=== PATIENT | male | born 1945 | race Caucasian/White ===

== ENCOUNTER 2020-05-26 06:33 | Day surgery (SDC) | payer MEDICARE, SELFPAY ==
--- NOTE | 2020-05-24 14:14 | EKG12_ITS ---
Test Reason : PRE OP Blood Pressure : / mmHG Vent. Rate : 059 BPM Atrial Rate : 059 BPM P-R Int : 160 ms QRS Dur : 094 ms QT Int : 472 ms P-R-T Axes : 060 067 052 degrees QTc Int : 467 ms Sinus bradycardia Otherwise normal ECG Confirmed by KARMEN WARREN, KARIN ([id number]), editorial writer LISA SMITH ([id number]) on 05/25/2020 10:45:51 AM Referred By: Long Calles Confirmed By:KARIN PERAZA MD
[2020-05-24 16:02] LABS: Hematocrit 37.8 % (40-54); Mean Corp Hgb Conc 31.7 g/dL (32-36); Mean Corpuscular Hgb 30.2 pg (27.0-32.0); Mean Platelet Vol. 10.9 fl (6.2-12.0); Platelet Count 122 K/mm3 (150-450); RBC Distribution Width CV 14.6 % (11.6-14.6); RBC Distribution Width SD 50.5 fl (35.1-43.9); Red Blood Count 3.98 M/mm3 (4.6-6.2); White Blood Count 5.4 K/mm3 (4.4-11.0)
[2020-05-24 16:21] LABS: Anion Gap 4 (5-15); BUN 16 mg/dL (7-18); BUN/Creat Ratio 12.5 RATIO (10-20); Chloride 114 mmol/L (98-107); Creatinine, Serum 1.28 mg/dL (0.70-1.30); EST Glomerular Filtration Rate 58 mL/min (>60); Est Glom Filt Rate - Afr Amer 70 mL/min (>60); Glucose 151 mg/dL (74-106); Potassium 4.5 mmol/L (3.5-5.1); Sodium Level 142 mmol/L (136-145)
[2020-05-26] VITALS (12 sets, daily range): BP systolic 115–160; BP diastolic 52–76; PULSE 64–71; RESP 16–18; TEMP 36.1–36.8; O2SAT 92–97; BMI 35.4
--- NOTE | 2020-05-26 | PROS_PTH ---
PATIENT: BETO HANSON LOC: [facility] [place] U#:[id number] AGE/SX: 74/M ROOM: RE05/26/[address]: Dr. Long Calles MD : [id number] BED: DIS: 05/27/2020 SPEC #: [id number] RECD: 05/26/20 10:39 STATUS: KRISH RENick #: [id number] JENNIFER: 05/26/20 00:[address]: Long Calles DEPT: SURGICAL PATHOLOGY RECD BY: Fidencio Dixon ENTERED: 05/26/20 10:39 SP TYPE: TURP OTHR DR: Dr. Edith Schaefer, DO Tissues: Prostate, NOS Procedures: Surgery Specimen Level IV HEADER OPERATION: Cysto, TUR prostate, Olympus PRE-OP DIAGNOSIS: BPH with obstruction, lower urinary tract symptoms TISSUE SUBMITTED: Prostate tissue MICROSCOPIC DIAGNOSIS Prostate tissue, TUR: A minute focus of prostatic adenocarcinoma (0.3 x 0.2 cm, measured microscopically). See cancer summary in the comment section. SJ:rg 05/29/2020 COMMENT PROSTATE CANCER (TUR) SUMMARY Procedure - transurethral resection of prostate (TURP) Histologic type - acinar adenocarcinoma Histologic grade (Lidia Pattern) - grade group 1 (Lidia score 3+3=6) Tumor Quantitation (TUR specimens): Proportion (%) of prostatic tissue involved by tumor - <1% Number of positive chips - 1 Total number of chips - ~120 Periprostatic fat invasion - not identified Seminal vesicle invasion - not identified Lymphvascular invasion - not identified Perineural invasion - not identified Additional pathologic findings - benign prostatic hyperplasia, glandular and stromal type. - Mild chronic inflammation. Treatment effect - no known presurgical therapy. The above summary is in compliance with [employer] (CAP) Cancer Protocols Checklist and [place] Joint Committee on Cancer (AJCC), Staging Manual, 8th Ed. Case has been reviewed in consultation with Dr. Foss who concurs with the above diagnosis. IDC:AM MICROSCOPIC DESCRIPTION Slides are reviewed. GROSS DESCRIPTION Received is one container labeled with the patient's name and designated prostate tissue. The specimen consists of multiple irregular fragments of pink-cuenca, rubbery, soft tissue that in aggregate weigh 12.9 gm and measure in aggregate 6 x 6 x 0.8 cm. The entire specimen is submitted in eight cassettes. / AM:camille 05/26/2020 TC:0 CPT: 78889
[2020-05-26] MEDS: Lactated Ringers 1,000 ML 100 ML IV ×2 (07:07→10:40)
--- NOTE | 2020-05-26 07:32 | PCM.HP.STD ---
Problem List (1) BPH with obstruction/lower urinary tract symptoms Status: Acute History of Present Illness Date of Admission: 05/26/20 Chief Complaint: BPH with obstruction The patient is a 74 year old male with BPH and obstruction has significant urinary problems on cystoscopy was found to have prostatic growth and blockage so we will proceed with a TURP Past Medical History Allergies Iodinated Contrast Media [DYEE] Allergy (Intermediate, Verified 05/26/20 06:39) Hives Home Medications: Ambulatory Orders Medication Instructions Recorded Allopurinol [Zyloprim] 300 mg PO DAILY 12/19/14 Aspirin E.C. [Ecotrin] 81 mg PO DAILY@0800 12/19/14 Insulin Glargine,Hum.rec.anlog 100 unit SC QHS 12/19/14 [Lantus] Ramipril [Altace] 10 mg PO BID 12/19/14 Rosuvastatin Calcium [Crestor] 20 mg PO DAILY 12/19/14 Iron Carbonyl [Feosol] 64 mg PO DAILY 04/09/16 Insulin Lispro [Humalog KwikPen] 30 unit SQ TID 05/22/20 Sotalol HCl [Betapace AF (Beta 80 mg PO BID 05/22/20 Chayito)] Tamsulosin HCl [Flomax] 0.4 mg PO QHS 05/22/20 metFORMIN HCl [Glucophage] 1,000 mg PO BIDCM 05/22/20 Surgical History: no surgical history Smoking Status: Former smoker Tobacco Use: Non-smoker Review of Systems Constitutional: Denies: Chills, Fever, Weight Change HEENT: Denies: Head Aches, Sinus Congestion, Sinus Drainage Cardiovascular: Denies: Chest Pain, Palpitations Respiratory: Denies: Cough, Shortness of breath at rest, Sputum production Gastrointestinal: Denies: Abdominal Pain, Nausea, Vomiting Genitourinary: Denies: Dysuria Musculoskeletal: Denies: Joint Pain, Joint Tenderness Skin: Denies: Rash, Wounds Neurological: Denies: Numbness, Tingling, Focal weakness Psychiatric: Denies: Anxiety, Depression, Homicidal Ideations, Suicidal Ideations Hematologic/ Lymphatic: Denies: Easy Bruising, Easy Bleeding VTE Information - Inpt Only VTE Present on Admission: No - Physical Exam Vitals/I&O's: Vital Signs Temp Pulse Resp BP Pulse Ox 98.2 F 64 16 145/72 H 95 05/26/20 07:07 05/26/20 07:07 05/26/20 07:07 05/26/20 07:07 05/26/20 07:07 Oxygen Delivery Method Room Air Weight: 102.6 kg Body Mass Index (BMI) 35.4 General: Alert, Oriented x3, Cooperative HEENT: Atraumatic, PERRLA, EOMI, Normocephalic Neck: Supple, No JVD, Negative Carotid Bruits Lungs: Clear to auscultation, Normal air movement Cardiovascular: Regular rate, No murmurs Abdomen: Bowel Sounds Present, Soft, Non Tender Extremities: No edema, Capillary Refill Less than 3 Seconds Skin: No rashes, No breakdown Musculoskeletal: No Tenderness to Palpation of Joints or Extremities Neurological: Cranial nerves II-XII grossly intact Psych/Mental Status: Normal Affect, Appropriate Microbiology Past 72 Hours 05/24/20 14:15 Interface Orders SARS-CoV-2 Antigen (Rapid) - Final Current Medications Cefazolin Sodium 2 gm/ Sodium (Chloride) 110 mls @ 150 mls/hr IV PREOP ONE Stop: 05/26/20 09:33 Lactated Ringer's () 1,000 mls @ 100 mls/hr IV .Q10H ALEXIS Last Admin: 05/26/20 07:07 Dose: 100 mls/hr Documented by: Assessment/Plan All Active Problems BPH with obstruction/lower urinary tract symptoms (Acute) 74-year-old male with heavy obstruction of the prostate with BPH and obstruction plan to proceed with a TURP.
--- NOTE | 2020-05-26 07:56 | PCM.DC.URO ---
Discharge Diet: Light diet - advance as tolerated Discharge Activity: Return to Normal Activity, May not drive while taking narcotic pain medications. Call your doctor if your incision/area has: Continuous Slow Oozing, Sudden Increased Bleeding, Increased Pain/ Swelling, Increased Redness, Foul Smelling Discharge, Swelling at the incision site Suture Line Care: Avoid Pulling/Pushing, Avoid Pinching/Bending Instructions: Transurethral Resection of the Prostate (TURP): Home Recovery Allergies/Adverse Reactions: Allergies Iodinated Contrast Media [DYEE] Allergy (Intermediate, Verified 05/26/20 06:39) Hives Medications to take at Discharge Allopurinol [Zyloprim] 300 mg PO DAILY 12/19/14 Aspirin E.C. [Ecotrin] 81 mg PO DAILY@0800 12/19/14 Insulin Glargine,Hum.rec.anlog [Lantus] 100 unit SC QHS 12/19/14 Ramipril [Altace] 10 mg PO BID 12/19/14 Rosuvastatin Calcium [Crestor] 20 mg PO DAILY 12/19/14 Iron Carbonyl [Feosol] 64 mg PO DAILY 04/09/16 Insulin Lispro [Humalog KwikPen] 30 unit SQ TID 05/22/20 Sotalol HCl [Betapace AF (Beta Chayito)] 80 mg PO BID 05/22/20 Tamsulosin HCl [Flomax] 0.4 mg PO QHS 05/22/20 metFORMIN HCl [Glucophage] 1,000 mg PO BIDCM 05/22/20 Ciprofloxacin [Cipro] 500 mg PO BID #14 tab 05/26/20 The following prescriptions were given: Ciprofloxacin [Cipro] 500 mg PO BID #14 tab Transmission Status: Pending to [facility] Primary Care Physician: Edith Schaefer DO [Primary Care Provider] - Test Results: Test results from this visit will be discussed in further detail at your follow-up appointment, if applicable. Please Follow Up With: Long Calles MD When: in 2 weeks, please call to make an appointment.
[2020-05-26] MEDS: Cefazolin 2 GM in 0.9% Normal Saline 100 ML IV (08:22)
[2020-05-26 08:46] LABS: Bedside Glucose 164 mg/dL (70-110)
--- NOTE | 2020-05-26 09:27 | OP.PCM_ITS ---
Problem List (1) BPH with obstruction/lower urinary tract symptoms Status: Acute Report of Operation Date of Procedure: 05/26/20 Pre-Operative Diagnosis: BPH with obstruction Post-Operative Diagnosis: Same Surgery/Procedure Performed:: Transurethral section of prostate Description of Surgical Findings:: In the preoperative setting I discussed with the patient how the surgery would be done with expect afterwards. We discussed how a prostate resection is done and we discussed the risk of the surgery including, bleeding, infection, retrograde ejaculation, changes with ejaculation or intercourse,. We discussed the possibility that the resection of the prostate may not alleviate his urinary symptoms. We discussed the small risk of developing scar tissue along the urethral channel and strictures. We also discussed the chance of the prostate could grow back and he may need further surgery or treatment in the future for prostate problems. Patient was taken back to the operating room, timeout procedure was performed, he was identified and marked and placed on the operating room table. He underwent general anesthesia. He was placed in dorsolithotomy position. Penis and testicles were prepped and draped in usual sterile fashion. Went into the bladder using the visual obturator with a resectoscope. Once inside the bladder identified the right and left ureteral orifice. I then identified the prostate and the anatomy of the prostate. I marked out the area of the sphincter and the verumontanum was identified. I then proceeded with the prostate resection first resected the median lobe. And then resected the right lobe of the prostate. Then to resect the left lobe of the prostate. I then resected the apical tissue of the prostate. Made sure that there was no injury to the sphincter or the verumontanum was still intact. At the end of the resection all the chips were Ellik out of the bladder. I then identified the left and right ureteral orifice and these were confirmed to be in good position and effluxing and not injured. The resectoscope was removed, a 22 Latvian catheter was placed into the bladder on continuous irrigation. And the urine was fairly light pink color and draining normally. He was taken back to the PACU in good condition. Type of Anesthesia:: General Drains: 22fr 3 way - Admit VTE Documentation VTE Present on Admission: No VTE Mechan Device Prophylaxis: SCD's
[2020-05-26 10:01] LABS: Bedside Glucose 173 mg/dL (70-110)
[2020-05-26] MEDS: 0.9% Normal Saline 1,000 ML 75 ML IV ×2 (12:29→23:55)
[2020-05-26 13:16] LABS: Bedside Glucose 221 mg/dL (70-110)
--- NOTE | 2020-05-26 13:16 | NURSING ---
Menu given and explained diet and how to order. pt looking at menu at this time.
[2020-05-26] MEDS: Insulin Lispro 100 UNIT/ML INSULN.PEN 30 UNIT SC ×2 (14:58→19:09)
[2020-05-26] MEDS: Ibuprofen 600 MG Tablet PO ×2 (15:03→21:24)
[2020-05-26] MEDS: metFORMIN HCl 1,000 MG Tablet 1000 MG PO ×2 (15:03→19:09)
[2020-05-26] MEDS: Pantoprazole Sodium 40 MG Tablet PO (15:03)
[2020-05-26] MEDS: Tamsulosin HCl 0.4 MG Capsule PO (21:22)
[2020-05-26] MEDS: Docusate Sodium 100 MG Capsule PO (21:22)
[2020-05-26] MEDS: Sotalol Hydrochloride 80 MG Tablet PO (21:22)
[2020-05-26] MEDS: Ramipril 10 MG Capsule PO (21:22)
[2020-05-26 21:55] LABS: Bedside Glucose 305 mg/dL (70-110)
[2020-05-27 02:25] LABS: Bedside Glucose 188 mg/dL (70-110)
[2020-05-27 03:53] VITALS: BP 134/57; PULSE 64; RESP 18; TEMP 36.5; O2SAT 97
[2020-05-27 06:51] LABS: Bedside Glucose 220 mg/dL (70-110)
--- NOTE | 2020-05-27 07:45 | NURSING ---
CBI stopped at this time.
[2020-05-27 07:55] VITALS: BP 142/53; PULSE 70; RESP 16; TEMP 36.6; O2SAT 98
[2020-05-27] MEDS: Sotalol Hydrochloride 80 MG Tablet PO (08:26)
[2020-05-27] MEDS: Ramipril 10 MG Capsule PO (08:26)
[2020-05-27] MEDS: metFORMIN HCl 1,000 MG Tablet 1000 MG PO (08:26)
[2020-05-27] MEDS: Pantoprazole Sodium 40 MG Tablet PO (08:27)
[2020-05-27] MEDS: Allopurinol 300 MG Tablet PO (08:27)
[2020-05-27] MEDS: Insulin Lispro 100 UNIT/ML INSULN.PEN 30 UNIT SC ×2 (08:27→12:24)
[2020-05-27 08:41] LABS: Bedside Glucose 247 mg/dL (70-110)
[2020-05-27 12:41] LABS: Bedside Glucose 193 mg/dL (70-110)
[2020-05-27 13:41] VITALS: BP 163/65; PULSE 63; RESP 18; TEMP 36.5; O2SAT 97
[2020-05-30 10:46] LABS: Bedside Glucose 400 mg/dL (70-110)
[2020-05-30 10:46] LABS: Bedside Glucose 395 mg/dL (70-110)
== END 2020-05-27 13:55 | disposition home or self-care (01) ==
LOC: SDC 06:34 → AC 06:34 → MS3 10:48
PROVIDERS: Anesthesiology; Referring Provider Urology; Visit Provider Urology
PROC: (CPT 52601; principal; 2020-05-26 08:40)
DX: N40.1 Benign prostatic hyperplasia with lower urinary tract symptoms (principal); N13.8 Other obstructive and reflux uropathy; C61 Malignant neoplasm of prostate; I25.10 Atherosclerotic heart disease of native coronary artery without angina pectoris; I10 Essential (primary) hypertension; E11.9 Type 2 diabetes mellitus without complications; E78.00 Pure hypercholesterolemia, unspecified; D64.9 Anemia, unspecified; Z87.891 Personal history of nicotine dependence; Z79.82 Long term (current) use of aspirin; Z79.4 Long term (current) use of insulin; Z79.899 Other long term (current) drug therapy; Z20.822 Contact with and (suspected) exposure to COVID-19
CPT/HCPCS: 00914; 52601; 36415; 80048; 82962; 83036; 85027; 87426; 88305; 93005; C9803; J7030; J7120; J2405

== ENCOUNTER 2022-11-06 18:07 | Inpatient (IN) | payer MEDICARE, SELFPAY ==
[2022-11-06 19:13] VITALS: BMI 33.4
[2022-11-06 19:35] VITALS: BP 117/60; PULSE 94; RESP 18; TEMP 37; O2SAT 96
[2022-11-06 19:50] VITALS: PULSE 94; RESP 18; O2SAT 94
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
[2022-11-06] MEDS: Atorvastatin Calcium 40 MG Tablet PO (22:05)
[2022-11-06] MEDS: MELATONIN 3 MG TABLET PO (22:06)
[2022-11-06] MEDS: Methocarbamol 500 MG Tablet PO (22:07)
[2022-11-06 22:16] LABS: Bedside Glucose 153 mg/dL (74-106)
[2022-11-07 05:36] LABS: Absolute Lymphocyte Count 1.05 X10^3/uL (0.83-4.51); Absolute Neutrophil Count 3.9 X10^3/uL (2.0-7.7); Basophil# 0.03 X10^3/uL; Basophil% 0.5 % (0-1); Eosinophil# 0.15 X10^3/uL; Eosinophils% 2.6 % (0-5); Hemoglobin 7.4 g/dL (13.0-16.5); Lymphocyte # 1.05 X10^3/ul (0.83-4.51); Lymphocyte % 18.4 % (19-41); Mean Corp Hgb Conc 30.8 g/dL (32-36); Mean Corpuscular Hgb 29.5 pg (27.0-32.0); Mean Corpuscular Volume 95.6 fL (80-94); Mean Platelet Vol. 9.2 fl (6.2-12.0); Monocyte# 0.59 X10^3/uL; Monocyte% 10.4 % (0-10); NRBC Flagged by Analyzer 0 % (0-5); Neutrophil # 3.86 X10^3/uL (2.7-7.7); Neutrophil % 67.7 % (47-70); Platelet Count 267 K/mm3 (150-450); RBC Distribution Width CV 16.1 % (11.6-14.6); RBC Distribution Width SD 56.1 fl (35.1-43.9); Red Blood Count 2.51 M/mm3 (4.6-6.2); White Blood Count 5.7 K/mm3 (4.4-11.0)
[2022-11-07 06:02] LABS: Anion Gap 4 (5-15); BUN 27 mg/dL (7-18); BUN/Creat Ratio 21.8 RATIO (10-20); Calcium,Total 8.4 mg/dL (8.5-10.1); Chloride 108 mmol/L (98-107); Creatinine, Serum 1.24 mg/dL (0.70-1.30); EST Glomerular Filtration Rate 60 mL/min (>60); Est Glom Filt Rate - Afr Amer 72 mL/min (>60); Glucose 112 mg/dL (74-106); Potassium 4.8 mmol/L (3.5-5.1); Sodium Level 136 mmol/L (136-145)
[2022-11-07 06:23] LABS: Bedside Glucose 123 mg/dL (74-106)
[2022-11-07] MEDS: Polyethylene Glycol 3350 17 GM PACKET PO ×2 (06:55→17:49)
[2022-11-07] MEDS: Lidocaine 5% Patch 1 PATCH TOPICAL (06:55)
[2022-11-07] MEDS: amLODIPine 5 MG Tablet PO (06:56)
[2022-11-07] MEDS: Isosorbide Mononitrate 30 MG Tablet PO ×2 (06:57→17:49)
[2022-11-07] MEDS: APIXABAN 2.5 MG TABLET (WCH) PO ×2 (06:58→17:49)
[2022-11-07] MEDS: Acetaminophen 500 MG Tablet 1000 MG PO ×3 (06:59→21:08)
[2022-11-07] MEDS: Senna/Docusate Sodium 1 Tablet 2 TABLET PO ×2 (06:59→21:06)
[2022-11-07] MEDS: Menthol/Lanolin/Calamine/Znox 113 GM Tube 1 APPLIC TOPICAL ×2 (07:01→17:50)
[2022-11-07] MEDS: Nystatin Powder 15gm Bottle 1 APPLIC TOPICAL ×2 (07:01→17:49)
[2022-11-07] MEDS: Bisacodyl 10 MG Suppository RC (07:02)
[2022-11-07 07:51] LABS: Mucous, Urine 0 SEEN /hpf (<or=2+); Squamous Epithelial Cells - UA 0 SEEN /hpf (0-5)
[2022-11-07 07:55] LABS: Color, Urine Yellow (Yellow); Glucose, Dipstick Normal (Normal); Ketone-Dipstick Negative (Negative); Leukocyte Esterase-Dipstick 500 /ul (Negative); Nitrite-Dipstick Positive (Negative); Occult Blood-Urine 250 /ul (Negative); Protein-Dipstick 30 mg/dl (Negative); Urine Bilirubin Dipstick Negative (Negative); Urine Clarity Sl. Cloudy (Clear); Urine Urobilinogen 4 mg/dl (Normal); Urine pH 6.5 (5.0 - 8.0)
[2022-11-07 08:02] LABS: Bacteria 2+ /hpf (None Seen); Red Blood Cells-Urine 0-5 SEEN /hpf (0-5); White Blood Cells 10-25 SEEN /hpf (0-5)
[2022-11-07] MEDS: oxyCODONE 5 MG Tablet PO ×3 (08:07→17:50)
[2022-11-07] MEDS: BACITRACIN 15 GM Tube 1 APPLIC TOPICAL ×3 (09:00→21:06)
[2022-11-07] MEDS: Insulin Lispro 100 UNIT/ML INSULN.PEN 28 UNIT SC ×2 (09:00→12:40)
[2022-11-07] MEDS: Folic Acid 1 MG Tablet PO (09:01)
[2022-11-07] MEDS: Ferrous Sulfate 325 MG Tablet PO (09:01)
[2022-11-07 09:05] VITALS: BP 112/40; PULSE 49; RESP 14; TEMP 36.1; O2SAT 94
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
--- NOTE | 2022-11-07 11:13 | CASEMGMT ---
Social Work Met with patient to complete initial assessment. Introduced self and role. Discussed code status and MOLST form. Pt confirm DNR-CCA, no intubation. MOLST placed in Dr folder. Educated to [facility] insurance with $0 copay and continued stay is not guaranteed with each review. Pt states he is unable to provide advanced directives. SW to continue to follow for DC planning. Amberly Swain, AZURE PRINCIPAL SOLUTION SPECIALIST SOLAR INSTALLATION CREW SUPERVISOR
--- NOTE | 2022-11-07 11:15 | NURSING ---
Call placed to Dr. Edith Schaefer's office for immunization history. VM left. Waiting call back.
[2022-11-07] MEDS: Tuberculin,Purif.prot.deriv. 50 TU/ML Vial 0.1 ML ID (11:20)
[2022-11-07] MEDS: Ciprofloxacin 250 MG Tablet PO ×2 (11:20→17:49)
[2022-11-07 11:27] LABS: Bedside Glucose 174 mg/dL (74-106)
[2022-11-07] MEDS: Methocarbamol 500 MG Tablet PO ×2 (12:40→21:06)
--- NOTE | 2022-11-07 13:40 | WOUNDNOTE ---
Was consulted on patient for external fixator sites, abrasions, and wounds to the left heel. nursing had recently changed the dressings. patient states dressings are painful. will assess in the am.
[2022-11-07 16:34] LABS: Bedside Glucose 46 mg/dL (74-106)
[2022-11-07 17:06] LABS: Bedside Glucose 83 mg/dL (74-106)
--- NOTE | 2022-11-07 17:11 | NURSING ---
Addendum entered by Zia Sherman 11/07/22 17:40: Dr. Arndt decreased humalog. Original Note: BGT this evening 46. Patient asymptomatic. RN offered OJ and peanut butter w/ fernandez cracker. BGT improved on recheck. RN held evening humalog. Dr. Arndt notified.
--- NOTE | 2022-11-07 17:31 | NURSING ---
MELITON C&S collected this AM. Patient started on Cipro.
[2022-11-07 17:42] VITALS: BP 155/71; PULSE 84
[2022-11-07] MEDS: Tamsulosin HCl 0.4 MG Capsule PO (17:49)
--- NOTE | 2022-11-07 18:07 | NURSING ---
Addendum entered by Zia Sherman 11/07/22 18:10: Patient's HGB 7.4 this AM. New order to transfuse 2 units PRBCs and give Lasix 20mg IVP between units. REPEAT H&H in 24hrs post transfusion. Order faxed to infusion center and updated nursing supervisor concrete stone fabricating. Patient scheduled for transfusion at 9AM tomorrow morning. Original Note: Patient's son in this evening, requesting consult for Ortho. States patient did not have a good experience with [facility] and would like a second opinion. New order entered by Dr. Arndt Patient painful this shift, pain remained at a 7 with PRN Oxy. New order entered by Dr. Arndt for Tramadol.
[2022-11-07] MEDS: Atorvastatin Calcium 40 MG Tablet PO (21:08)
[2022-11-07] MEDS: MELATONIN 3 MG TABLET PO (21:08)
[2022-11-07] MEDS: traMADol 50 MG Tablet PO (21:14)
[2022-11-07 21:27] LABS: Bedside Glucose 203 mg/dL (74-106)
[2022-11-08] MEDS: oxyCODONE 5 MG Tablet PO ×4 (03:19→22:25)
[2022-11-08 06:19] LABS: Bedside Glucose 161 mg/dL (74-106)
[2022-11-08 06:20] VITALS: BP 127/55; PULSE 91
[2022-11-08] MEDS: traMADol 50 MG Tablet PO (06:22)
[2022-11-08] MEDS: Lidocaine 5% Patch 1 PATCH TOPICAL (06:23)
[2022-11-08] MEDS: Senna/Docusate Sodium 1 Tablet 2 TABLET PO ×2 (06:25→15:28)
[2022-11-08] MEDS: Acetaminophen 500 MG Tablet 1000 MG PO ×3 (06:25→22:29)
[2022-11-08] MEDS: Polyethylene Glycol 3350 17 GM PACKET PO ×2 (06:26→17:42)
[2022-11-08] MEDS: Isosorbide Mononitrate 30 MG Tablet PO ×2 (06:26→17:42)
[2022-11-08] MEDS: APIXABAN 2.5 MG TABLET (WCH) PO ×2 (06:26→17:42)
[2022-11-08] MEDS: amLODIPine 5 MG Tablet PO (06:26)
[2022-11-08] MEDS: Ciprofloxacin 250 MG Tablet PO ×2 (06:26→17:41)
[2022-11-08] MEDS: BACITRACIN 15 GM Tube 1 APPLIC TOPICAL ×3 (06:27→22:30)
[2022-11-08] MEDS: Menthol/Lanolin/Calamine/Znox 113 GM Tube 1 APPLIC TOPICAL ×2 (06:27→17:43)
[2022-11-08] MEDS: Nystatin Powder 15gm Bottle 1 APPLIC TOPICAL ×2 (06:28→17:43)
[2022-11-08] MEDS: Insulin Lispro 100 UNIT/ML INSULN.PEN 10 UNIT SC ×2 (08:08→17:44)
[2022-11-08] MEDS: Ferrous Sulfate 325 MG Tablet PO (08:09)
[2022-11-08] MEDS: Folic Acid 1 MG Tablet PO (08:09)
--- NOTE | 2022-11-08 09:01 | NUR.TO.PHY ---
REcieved call from Dr Oscar. He notes that he does not work with external fixators and is unable to take care of pt. He will need to continue care at
--- NOTE | 2022-11-08 09:18 | WOUNDNOTE ---
Pt off unit for blood transfusion. will most likely not get to assess leg until Friday since patient will be off unit most of the day. TORY Espino aware.
[2022-11-08 15:29] VITALS: BP 135/95; PULSE 45; RESP 18; TEMP 36.4; O2SAT 97
[2022-11-08] MEDS: Methocarbamol 500 MG Tablet PO ×2 (15:29→22:29)
--- NOTE | 2022-11-08 15:29 | NS ---
Provided res with copy of daily specials/first choice menu w/ instructions on how to order. Food dislikes: none. MST score = 4 d/t unknown wt and wounds.
[2022-11-08 17:12] LABS: Bedside Glucose 176 mg/dL (74-106)
[2022-11-08] MEDS: Tamsulosin HCl 0.4 MG Capsule PO (17:41)
[2022-11-08 22:00] VITALS: PULSE 90; RESP 16; O2SAT 96
[2022-11-08] MEDS: MELATONIN 3 MG TABLET PO (22:29)
[2022-11-08] MEDS: Atorvastatin Calcium 40 MG Tablet PO (22:30)
[2022-11-09] MEDS: oxyCODONE 5 MG Tablet PO ×2 (03:01→09:01)
[2022-11-09] MEDS: BACITRACIN 15 GM Tube 1 APPLIC TOPICAL ×3 (05:19→22:22)
[2022-11-09] MEDS: Acetaminophen 500 MG Tablet 1000 MG PO ×3 (05:24→22:23)
[2022-11-09] MEDS: Lidocaine 5% Patch 1 PATCH TOPICAL (05:24)
[2022-11-09] MEDS: Polyethylene Glycol 3350 17 GM PACKET PO (05:24)
[2022-11-09] MEDS: amLODIPine 5 MG Tablet PO (05:25)
[2022-11-09] MEDS: Ciprofloxacin 250 MG Tablet PO ×2 (05:25→17:45)
[2022-11-09] MEDS: Isosorbide Mononitrate 30 MG Tablet PO ×2 (05:25→17:45)
[2022-11-09] MEDS: Senna/Docusate Sodium 1 Tablet 2 TABLET PO ×2 (05:25→22:23)
[2022-11-09] MEDS: Menthol/Lanolin/Calamine/Znox 113 GM Tube 1 APPLIC TOPICAL ×2 (05:26→17:46)
[2022-11-09] MEDS: APIXABAN 2.5 MG TABLET (WCH) PO ×2 (05:27→17:45)
[2022-11-09] MEDS: Nystatin Powder 15gm Bottle 1 APPLIC TOPICAL ×2 (05:28→17:46)
--- NOTE | 2022-11-09 05:34 | NURSING ---
Patient declined rectal dulcolax at this time per order despite education. Patient states I don't need it, I just moved my bowels this morning. Per BROADCAST PROGRAM DIRECTOR patient had XLG BM this AM.
[2022-11-09] MEDS: Folic Acid 1 MG Tablet PO (09:02)
[2022-11-09] MEDS: Ferrous Sulfate 325 MG Tablet PO (09:02)
--- NOTE | 2022-11-09 09:13 | NURSING ---
blood sugar checked 59 post prandial, pt asymptomatic, OJ given. will monitor
[2022-11-09 09:27] LABS: Bedside Glucose 59 mg/dL (74-106)
--- NOTE | 2022-11-09 09:40 | NURSING ---
blood sugar rechecked 321.
[2022-11-09 09:56] LABS: Bedside Glucose 321 mg/dL (74-106)
[2022-11-09] MEDS: Insulin Lispro 100 UNIT/ML INSULN.PEN SC ×2 (10:56→17:47)
[2022-11-09] MEDS: Methocarbamol 500 MG Tablet PO ×2 (10:57→22:23)
[2022-11-09 10:58] LABS: Hematocrit 31.8 % (40-54)
[2022-11-09 11:29] LABS: Bedside Glucose 265 mg/dL (74-106)
[2022-11-09] MEDS: traMADol 50 MG Tablet PO (13:34)
[2022-11-09 14:06] VITALS: PULSE 99; RESP 18; O2SAT 99
[2022-11-09 16:00] VITALS: BP 132/58; PULSE 85; RESP 14; TEMP 36.8; O2SAT 95
[2022-11-09] MEDS: Tamsulosin HCl 0.4 MG Capsule PO (17:47)
[2022-11-09 18:09] LABS: Bedside Glucose 158 mg/dL (74-106)
[2022-11-09 21:57] LABS: Bedside Glucose 155 mg/dL (74-106)
[2022-11-09] MEDS: MELATONIN 3 MG TABLET PO (22:24)
[2022-11-09] MEDS: Atorvastatin Calcium 40 MG Tablet PO (22:24)
[2022-11-10] MEDS: traMADol 50 MG Tablet PO ×2 (04:51→18:19)
[2022-11-10] MEDS: BACITRACIN 15 GM Tube 1 APPLIC TOPICAL ×3 (04:52→22:33)
[2022-11-10] MEDS: Menthol/Lanolin/Calamine/Znox 113 GM Tube 1 APPLIC TOPICAL ×2 (04:53→18:23)
[2022-11-10] MEDS: Nystatin Powder 15gm Bottle 1 APPLIC TOPICAL ×2 (04:53→18:15)
[2022-11-10] MEDS: Lidocaine 5% Patch 2 PATCH TOPICAL (04:54)
[2022-11-10] MEDS: Polyethylene Glycol 3350 17 GM PACKET PO (04:58)
[2022-11-10] MEDS: Senna/Docusate Sodium 1 Tablet 2 TABLET PO ×2 (04:58→22:35)
[2022-11-10] MEDS: Isosorbide Mononitrate 30 MG Tablet PO ×2 (04:59→18:15)
[2022-11-10] MEDS: Ciprofloxacin 250 MG Tablet PO ×2 (04:59→18:14)
[2022-11-10] MEDS: APIXABAN 2.5 MG TABLET (WCH) PO ×2 (04:59→18:14)
[2022-11-10] MEDS: amLODIPine 5 MG Tablet PO (04:59)
[2022-11-10] MEDS: Acetaminophen 500 MG Tablet 1000 MG PO ×3 (05:06→22:35)
[2022-11-10 05:09] VITALS: BP 152/67; PULSE 92; RESP 16
[2022-11-10 06:29] LABS: Bedside Glucose 170 mg/dL (74-106)
[2022-11-10] MEDS: Insulin Lispro 100 UNIT/ML INSULN.PEN SC ×2 (09:29→18:13)
[2022-11-10] MEDS: Ferrous Sulfate 325 MG Tablet PO (09:38)
[2022-11-10] MEDS: Folic Acid 1 MG Tablet PO (09:38)
[2022-11-10] MEDS: Methocarbamol 500 MG Tablet PO ×2 (11:44→22:36)
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
[2022-11-10 11:46] LABS: Bedside Glucose 201 mg/dL (74-106)
[2022-11-10 16:00] VITALS: BP 141/67; PULSE 92; RESP 16; TEMP 36.9; O2SAT 97
[2022-11-10] MEDS: Tamsulosin HCl 0.4 MG Capsule PO (18:14)
[2022-11-10 18:15] LABS: Bedside Glucose 228 mg/dL (74-106)
[2022-11-10 22:11] LABS: Bedside Glucose 189 mg/dL (74-106)
[2022-11-10 22:22] VITALS: PULSE 86; RESP 16; O2SAT 98
[2022-11-10] MEDS: MELATONIN 3 MG TABLET PO (22:35)
[2022-11-10] MEDS: Atorvastatin Calcium 40 MG Tablet PO (22:36)
[2022-11-11] MEDS: BACITRACIN 15 GM Tube 1 APPLIC TOPICAL ×3 (06:16→20:35)
[2022-11-11] MEDS: Menthol/Lanolin/Calamine/Znox 113 GM Tube 1 APPLIC TOPICAL ×2 (06:16→18:19)
[2022-11-11 06:19] LABS: Bedside Glucose 174 mg/dL (74-106)
[2022-11-11] MEDS: Senna/Docusate Sodium 1 Tablet 2 TABLET PO ×2 (06:19→20:34)
[2022-11-11] MEDS: Polyethylene Glycol 3350 17 GM PACKET PO ×2 (06:19→18:19)
[2022-11-11] MEDS: Ciprofloxacin 250 MG Tablet PO ×2 (06:20→18:18)
[2022-11-11] MEDS: Isosorbide Mononitrate 30 MG Tablet PO ×2 (06:20→18:18)
[2022-11-11] MEDS: APIXABAN 2.5 MG TABLET (WCH) PO ×2 (06:20→18:19)
[2022-11-11] MEDS: amLODIPine 5 MG Tablet PO (06:20)
[2022-11-11] MEDS: Acetaminophen 500 MG Tablet 1000 MG PO ×3 (06:20→20:34)
[2022-11-11] MEDS: Nystatin Powder 15gm Bottle 1 APPLIC TOPICAL ×2 (06:21→18:19)
[2022-11-11] MEDS: Lidocaine 5% Patch 2 PATCH TOPICAL (06:21)
[2022-11-11 06:48] VITALS: BP 155/64; PULSE 82; RESP 16
[2022-11-11 08:44] VITALS: BP 123/66; PULSE 89; RESP 17; TEMP 36.9; O2SAT 96
[2022-11-11] MEDS: Folic Acid 1 MG Tablet PO (08:47)
[2022-11-11] MEDS: Ferrous Sulfate 325 MG Tablet PO (08:47)
[2022-11-11] MEDS: Insulin Lispro 100 UNIT/ML INSULN.PEN SC ×2 (08:47→18:20)
[2022-11-11] MEDS: oxyCODONE 5 MG Tablet PO ×2 (08:51→18:18)
--- NOTE | 2022-11-11 10:19 | NURSING ---
Addendum entered by Zia Sherman 11/11/22 16:31: Dr. Calles in to see patient at this time. Addendum entered by Zia Sherman 11/11/22 16:30: Returned call from [place] for Dr. Calles, will see patient at end of day today. Original Note: Call placed for Urology consult for Dr. Calles. No answer. RN left and call back number. Waiting return call.
[2022-11-11] MEDS: traMADol 50 MG Tablet PO ×2 (11:35→20:35)
[2022-11-11 11:52] LABS: Bedside Glucose 191 mg/dL (74-106)
--- NOTE | 2022-11-11 12:19 | NURSING ---
Ornament Stapler Note: Activity Asst: Ilir Rosenberg is independent in his choice of daily activities. He will read the paper, watch TV and use his smartphone to talk w/family. Chet welcomes visit from the stockroom helper and therapy dog when not resting. He has stated at this time due to his mobility issues with his leg he would rather just do in room activities. Staff will continue to remind him of activities and give him the paper to read. Staff will respect residents right to say No.
--- NOTE | 2022-11-11 12:25 | NURSING ---
Addendum entered by Rosa Beebe 11/25/22 14:54: Copy of vaccine record received, patient is up to date. Added latest vaccine to record. Addendum entered by Rosa Beebe 11/18/22 13:03: Patient reports he will have his son bring in his vaccine card tonight so records can be updated. Original Note: Discussed Covid shot, per patient he has had most recent booster, will ask family to bring vaccine card.
--- NOTE | 2022-11-11 13:29 | WOUNDNOTE ---
wound photo: left foot
--- NOTE | 2022-11-11 13:30 | WOUNDNOTE ---
wound photo: left leg
--- NOTE | 2022-11-11 13:31 | WOUNDNOTE ---
wound photo: left foot/leg
--- NOTE | 2022-11-11 13:31 | WOUNDNOTE ---
wound photo: left heel
[2022-11-11] MEDS: Methocarbamol 500 MG Tablet PO ×2 (13:45→20:34)
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
[2022-11-11 16:46] LABS: Bedside Glucose 188 mg/dL (74-106)
[2022-11-11 18:16] VITALS: BP 142/66; PULSE 87
[2022-11-11] MEDS: Tamsulosin HCl 0.4 MG Capsule PO (18:18)
[2022-11-11] MEDS: Atorvastatin Calcium 40 MG Tablet PO (20:34)
[2022-11-11] MEDS: MELATONIN 3 MG TABLET PO (20:34)
[2022-11-11 21:26] LABS: Bedside Glucose 191 mg/dL (74-106)
[2022-11-12 05:35] VITALS: BP 141/74; PULSE 97
[2022-11-12] MEDS: Isosorbide Mononitrate 30 MG Tablet PO ×2 (05:38→17:47)
[2022-11-12] MEDS: Polyethylene Glycol 3350 17 GM PACKET PO (05:38)
[2022-11-12] MEDS: Senna/Docusate Sodium 1 Tablet 2 TABLET PO ×2 (05:38→21:01)
[2022-11-12] MEDS: Acetaminophen 500 MG Tablet 1000 MG PO ×3 (05:38→21:00)
[2022-11-12] MEDS: APIXABAN 2.5 MG TABLET (WCH) PO ×2 (05:38→17:47)
[2022-11-12] MEDS: amLODIPine 5 MG Tablet PO (05:38)
[2022-11-12] MEDS: Menthol/Lanolin/Calamine/Znox 113 GM Tube 1 APPLIC TOPICAL ×2 (05:39→17:48)
[2022-11-12] MEDS: Ciprofloxacin 250 MG Tablet PO ×2 (05:39→17:47)
[2022-11-12] MEDS: Lidocaine 5% Patch 2 PATCH TOPICAL (05:39)
[2022-11-12] MEDS: BACITRACIN 15 GM Tube 1 APPLIC TOPICAL ×3 (05:39→20:53)
[2022-11-12] MEDS: Nystatin Powder 15gm Bottle 1 APPLIC TOPICAL ×2 (05:40→17:48)
[2022-11-12 06:20] LABS: Bedside Glucose 169 mg/dL (74-106)
[2022-11-12] MEDS: Insulin Lispro 100 UNIT/ML INSULN.PEN SC ×2 (08:38→17:46)
[2022-11-12] MEDS: Folic Acid 1 MG Tablet PO (08:39)
[2022-11-12] MEDS: Ferrous Sulfate 325 MG Tablet PO (08:39)
[2022-11-12 10:00] VITALS: PULSE 74; RESP 16; O2SAT 96
[2022-11-12] MEDS: oxyCODONE 5 MG Tablet PO ×2 (10:19→21:01)
[2022-11-12 11:32] LABS: Bedside Glucose 226 mg/dL (74-106)
[2022-11-12] MEDS: Methocarbamol 500 MG Tablet PO ×2 (12:27→21:00)
--- NOTE | 2022-11-12 14:03 | CASEMGMT ---
Social Work BIMS (05/02) and PHQ-9 (11/12) completed for MDS assessment. Amberly Swain MSW LIBRARY SERVICES COORDINATOR
[2022-11-12 15:51] VITALS: BP 127/59; PULSE 78; RESP 16; TEMP 36.4; O2SAT 95
[2022-11-12 16:31] VITALS: BMI 32.5
[2022-11-12 16:40] LABS: Bedside Glucose 237 mg/dL (74-106)
[2022-11-12] MEDS: Tamsulosin HCl 0.4 MG Capsule PO (17:47)
[2022-11-12 17:58] VITALS: BP 147/70; PULSE 88
[2022-11-12] MEDS: Atorvastatin Calcium 40 MG Tablet PO (21:01)
[2022-11-12] MEDS: MELATONIN 3 MG TABLET PO (21:01)
[2022-11-12 21:58] LABS: Bedside Glucose 202 mg/dL (74-106)
[2022-11-13] MEDS: amLODIPine 5 MG Tablet PO (06:00)
[2022-11-13 06:10] VITALS: BP 143/75; PULSE 85
[2022-11-13] MEDS: APIXABAN 2.5 MG TABLET (WCH) PO ×2 (06:10→17:03)
[2022-11-13] MEDS: Ciprofloxacin 250 MG Tablet PO ×2 (06:10→17:03)
[2022-11-13] MEDS: Polyethylene Glycol 3350 17 GM PACKET PO ×2 (06:10→17:02)
[2022-11-13] MEDS: Lidocaine 5% Patch 2 PATCH TOPICAL (06:10)
[2022-11-13] MEDS: Acetaminophen 500 MG Tablet 1000 MG PO ×3 (06:10→19:56)
[2022-11-13] MEDS: Nystatin Powder 15gm Bottle 1 APPLIC TOPICAL ×2 (06:10→17:03)
[2022-11-13] MEDS: BACITRACIN 15 GM Tube 1 APPLIC TOPICAL ×3 (06:10→19:58)
[2022-11-13] MEDS: Isosorbide Mononitrate 30 MG Tablet PO ×2 (06:10→17:03)
[2022-11-13] MEDS: Senna/Docusate Sodium 1 Tablet 2 TABLET PO ×3 (06:10→19:57)
[2022-11-13] MEDS: Menthol/Lanolin/Calamine/Znox 113 GM Tube 1 APPLIC TOPICAL ×2 (06:10→17:02)
[2022-11-13 06:26] LABS: Bedside Glucose 167 mg/dL (74-106)
[2022-11-13] MEDS: Insulin Lispro 100 UNIT/ML INSULN.PEN SC ×2 (08:07→16:56)
[2022-11-13] MEDS: Ferrous Sulfate 325 MG Tablet PO (08:08)
[2022-11-13] MEDS: Folic Acid 1 MG Tablet PO (08:08)
--- NOTE | 2022-11-13 09:04 | CASEMGMT ---
Addendum entered by Amberly Swain 11/15/22 10:47: [facility] accept at $340/day. SW updated son and that is their FOC. SW notified all SNFs. Will continue to follow. Addendum entered by Amberly Swain 11/14/22 14:32: SW updated son that [facility] and [facility] can accept pt. [facility] cannot accept. Two messages sent to [facility] and no response. Will continue to follow. Addendum entered by Amberly Swain 11/14/22 08:50: Son provided this worker with SNF preferences: [facility], [facility], [facility], [facility], [facility]. SW updated son that [facility] has no beds for the foreseeable future. Other SNF referrals made via [facility]. SW to continue to follow. Original Note: Social Work IDT met with patient, son and DIL for care plan meeting. Discussed patient's progress in PT/OT/SN. Educated to [facility] insurance with NRD 11/13 and continued stay is not guaranteed with each review. ST spoke on pt's multiple refusals for ST as cognitive deficits have been identified by IDT, and pt is mod I at home alone. Broached topic of needing alternative DC plan at SNF d/t x2 assist. Educated to financial liability. Family would like pt to get skilled therapy in TCU but understanding pt will need nonskilled care in another SNF. Pt has ortho f/u appt 11/21. Pt will need surgery for removal of fixator. SW provided printed list with quality and resource data via [employer]. SW to continue to follow. Amberly Swain, MARILIN HOMICIDE SQUAD SERGEANT
--- NOTE | 2022-11-13 10:55 | NURSING ---
Architectural Drafting Instructor Note; MDS Complete
[2022-11-13 11:30] LABS: Bedside Glucose 202 mg/dL (74-106)
[2022-11-13] MEDS: Methocarbamol 500 MG Tablet PO ×2 (13:25→19:56)
[2022-11-13 14:36] VITALS: BP 158/65; PULSE 84; RESP 18; TEMP 36.5; O2SAT 98
[2022-11-13 16:55] LABS: Bedside Glucose 235 mg/dL (74-106)
[2022-11-13] MEDS: Tamsulosin HCl 0.4 MG Capsule PO (16:57)
[2022-11-13] MEDS: oxyCODONE 5 MG Tablet PO (17:09)
[2022-11-13] MEDS: MELATONIN 3 MG TABLET PO (19:56)
[2022-11-13] MEDS: Atorvastatin Calcium 40 MG Tablet PO (19:56)
[2022-11-13 21:45] LABS: Bedside Glucose 216 mg/dL (74-106)
[2022-11-14 05:00] VITALS: BP 144/64; PULSE 88
[2022-11-14] MEDS: Senna/Docusate Sodium 1 Tablet 2 TABLET PO ×3 (05:00→22:25)
[2022-11-14] MEDS: Acetaminophen 500 MG Tablet 1000 MG PO ×3 (05:00→22:25)
[2022-11-14] MEDS: Ciprofloxacin 250 MG Tablet PO ×2 (05:01→18:09)
[2022-11-14] MEDS: Lidocaine 5% Patch 2 PATCH TOPICAL (05:01)
[2022-11-14] MEDS: amLODIPine 5 MG Tablet PO (05:01)
[2022-11-14] MEDS: APIXABAN 2.5 MG TABLET (WCH) PO ×2 (05:01→18:08)
[2022-11-14] MEDS: Isosorbide Mononitrate 30 MG Tablet PO ×2 (05:01→18:09)
[2022-11-14] MEDS: BACITRACIN 15 GM Tube 1 APPLIC TOPICAL ×3 (05:02→22:23)
[2022-11-14] MEDS: Polyethylene Glycol 3350 17 GM PACKET PO ×2 (05:02→18:09)
[2022-11-14] MEDS: Nystatin Powder 15gm Bottle 1 APPLIC TOPICAL ×2 (05:02→18:10)
[2022-11-14] MEDS: Menthol/Lanolin/Calamine/Znox 113 GM Tube 1 APPLIC TOPICAL ×2 (05:02→18:10)
[2022-11-14] MEDS: traMADol 50 MG Tablet PO ×2 (05:04→13:17)
[2022-11-14 05:58] LABS: Absolute Lymphocyte Count 0.77 X10^3/uL (0.83-4.51); Absolute Neutrophil Count 2.2 X10^3/uL (2.0-7.7); Basophil# 0.03 X10^3/uL; Basophil% 0.9 % (0-1); Eosinophil# 0.09 X10^3/uL; Eosinophils% 2.6 % (0-5); Hematocrit 29.4 % (40-54); Hemoglobin 9.1 g/dL (13.0-16.5); Lymphocyte # 0.77 X10^3/ul (0.83-4.51); Lymphocyte % 22.2 % (19-41); Mean Corpuscular Hgb 28.9 pg (27.0-32.0); Mean Corpuscular Volume 93.3 fL (80-94); Mean Platelet Vol. 9.3 fl (6.2-12.0); Monocyte# 0.42 X10^3/uL; Monocyte% 12.1 % (0-10); NRBC Flagged by Analyzer 0 % (0-5); Neutrophil # 2.15 X10^3/uL (2.7-7.7); Neutrophil % 61.9 % (47-70); Platelet Count 202 K/mm3 (150-450); RBC Distribution Width CV 15.5 % (11.6-14.6); RBC Distribution Width SD 52.8 fl (35.1-43.9); Red Blood Count 3.15 M/mm3 (4.6-6.2); White Blood Count 3.5 K/mm3 (4.4-11.0)
[2022-11-14 06:28] LABS: Bedside Glucose 200 mg/dL (74-106)
[2022-11-14 06:44] LABS: Anion Gap 4 (5-15); BUN 19 mg/dL (7-18); BUN/Creat Ratio 16.4 RATIO (10-20); Calcium,Total 8.6 mg/dL (8.5-10.1); Chloride 110 mmol/L (98-107); Creatinine, Serum 1.16 mg/dL (0.70-1.30); EST Glomerular Filtration Rate 65 mL/min (>60); Est Glom Filt Rate - Afr Amer 78 mL/min (>60); Estimated Creatinine Clearance 50.78 ml/min; Glucose 192 mg/dL (74-106); Potassium 4.3 mmol/L (3.5-5.1); Sodium Level 137 mmol/L (136-145)
[2022-11-14] MEDS: Glucerna Shake 120 ML LIQUID PO ×3 (07:45→18:06)
[2022-11-14] MEDS: Ferrous Sulfate 325 MG Tablet PO (07:45)
[2022-11-14] MEDS: Insulin Lispro 100 UNIT/ML INSULN.PEN SC ×2 (07:45→18:06)
[2022-11-14] MEDS: Folic Acid 1 MG Tablet PO (07:45)
[2022-11-14] MEDS: Tuberculin,Purif.prot.deriv. 50 TU/ML Vial 0.1 ML ID (08:57)
[2022-11-14] MEDS: oxyCODONE 5 MG Tablet PO (10:31)
[2022-11-14 11:45] LABS: Bedside Glucose 174 mg/dL (74-106)
[2022-11-14] MEDS: Methocarbamol 500 MG Tablet PO ×2 (12:06→22:25)
[2022-11-14 13:59] VITALS: BP 145/70; PULSE 85; RESP 16; TEMP 36.3; O2SAT 98
[2022-11-14 16:27] LABS: Bedside Glucose 196 mg/dL (74-106)
[2022-11-14] MEDS: Tamsulosin HCl 0.4 MG Capsule PO (18:07)
[2022-11-14 21:57] LABS: Bedside Glucose 201 mg/dL (74-106)
[2022-11-14] MEDS: MELATONIN 3 MG TABLET PO (22:25)
[2022-11-14] MEDS: Atorvastatin Calcium 40 MG Tablet PO (22:25)
[2022-11-14 23:00] VITALS: PULSE 90; RESP 14; O2SAT 90
[2022-11-15] MEDS: traMADol 50 MG Tablet PO ×2 (02:48→11:13)
[2022-11-15] MEDS: BACITRACIN 15 GM Tube 1 APPLIC TOPICAL ×2 (05:37→22:17)
[2022-11-15] MEDS: Lidocaine 5% Patch 2 PATCH TOPICAL (05:38)
[2022-11-15] MEDS: Acetaminophen 500 MG Tablet 1000 MG PO ×3 (05:38→22:15)
[2022-11-15] MEDS: Senna/Docusate Sodium 1 Tablet 2 TABLET PO ×2 (05:38→22:16)
[2022-11-15] MEDS: APIXABAN 2.5 MG TABLET (WCH) PO ×2 (05:38→17:56)
[2022-11-15] MEDS: Isosorbide Mononitrate 30 MG Tablet PO ×2 (05:38→17:56)
[2022-11-15] MEDS: Ciprofloxacin 250 MG Tablet PO ×2 (05:38→17:56)
[2022-11-15] MEDS: Polyethylene Glycol 3350 17 GM PACKET PO (05:38)
[2022-11-15] MEDS: amLODIPine 5 MG Tablet PO (05:39)
[2022-11-15] MEDS: Nystatin Powder 15gm Bottle 1 APPLIC TOPICAL ×2 (05:39→17:57)
[2022-11-15] MEDS: Menthol/Lanolin/Calamine/Znox 113 GM Tube 1 APPLIC TOPICAL ×2 (05:47→17:57)
[2022-11-15 05:54] VITALS: BP 142/68; PULSE 82; RESP 16
--- NOTE | 2022-11-15 06:34 | NURSING ---
die try out worker stamping reports glucometer unable to scan barcode requiring override. Result 165, lab contacted and notified of glucometer needing assessed.
[2022-11-15 06:42] LABS: Bedside Glucose 165 mg/dL (74-106)
--- NOTE | 2022-11-15 07:08 | MDS.RN ---
Information for the mds was obtained from review of the clinical record, interview of resident, staff, and direct observation of resident's care.
[2022-11-15] MEDS: Ferrous Sulfate 325 MG Tablet PO (09:13)
[2022-11-15] MEDS: Insulin Lispro 100 UNIT/ML INSULN.PEN SC ×2 (09:13→17:56)
[2022-11-15] MEDS: Glucerna Shake 120 ML LIQUID PO ×2 (09:13→17:57)
[2022-11-15] MEDS: Folic Acid 1 MG Tablet PO (09:13)
[2022-11-15] MEDS: oxyCODONE 5 MG Tablet PO (09:14)
[2022-11-15] MEDS: Methocarbamol 500 MG Tablet PO ×2 (11:14→22:15)
[2022-11-15 11:15] VITALS: BP 137/61; PULSE 83; RESP 17; TEMP 36.4; O2SAT 97
[2022-11-15 12:36] LABS: Bedside Glucose 175 mg/dL (74-106)
[2022-11-15 16:48] LABS: Bedside Glucose 180 mg/dL (74-106)
[2022-11-15 17:55] VITALS: BP 149/68; PULSE 81
[2022-11-15] MEDS: Tamsulosin HCl 0.4 MG Capsule PO (17:57)
[2022-11-15] MEDS: MELATONIN 3 MG TABLET PO (22:16)
[2022-11-15] MEDS: Atorvastatin Calcium 40 MG Tablet PO (22:16)
[2022-11-15 23:27] LABS: Bedside Glucose 206 mg/dL (74-106)
[2022-11-16] MEDS: Ciprofloxacin 250 MG Tablet PO ×2 (05:49→17:45)
[2022-11-16] MEDS: Nystatin Powder 15gm Bottle 1 APPLIC TOPICAL ×2 (05:49→17:47)
[2022-11-16] MEDS: amLODIPine 5 MG Tablet PO (05:49)
[2022-11-16] MEDS: Polyethylene Glycol 3350 17 GM PACKET PO ×2 (05:49→17:46)
[2022-11-16] MEDS: Acetaminophen 500 MG Tablet 1000 MG PO ×3 (05:49→21:25)
[2022-11-16] MEDS: Isosorbide Mononitrate 30 MG Tablet PO ×2 (05:49→17:45)
[2022-11-16] MEDS: APIXABAN 2.5 MG TABLET (WCH) PO ×2 (05:49→17:46)
[2022-11-16] MEDS: Senna/Docusate Sodium 1 Tablet 2 TABLET PO ×3 (05:49→21:26)
[2022-11-16] MEDS: Lidocaine 5% Patch 2 PATCH TOPICAL (05:50)
[2022-11-16] MEDS: BACITRACIN 15 GM Tube 1 APPLIC TOPICAL ×3 (06:12→21:29)
[2022-11-16] MEDS: Menthol/Lanolin/Calamine/Znox 113 GM Tube 1 APPLIC TOPICAL ×2 (06:13→17:46)
[2022-11-16 06:14] VITALS: BP 135/75; PULSE 95; RESP 16
[2022-11-16 07:20] LABS: Hematocrit 28.8 % (40-54); Hemoglobin 9.1 g/dL (13.0-16.5)
[2022-11-16] MEDS: Insulin Lispro 100 UNIT/ML INSULN.PEN SC ×2 (08:18→17:44)
[2022-11-16] MEDS: Glucerna Shake 120 ML LIQUID PO ×3 (08:18→17:46)
[2022-11-16] MEDS: Folic Acid 1 MG Tablet PO (08:19)
[2022-11-16] MEDS: Ferrous Sulfate 325 MG Tablet PO (08:19)
[2022-11-16] MEDS: traMADol 50 MG Tablet PO ×2 (09:05→17:53)
[2022-11-16 11:59] LABS: Bedside Glucose 202 mg/dL (74-106)
[2022-11-16] MEDS: Methocarbamol 500 MG Tablet PO ×2 (12:01→21:26)
[2022-11-16 15:52] VITALS: BP 141/68; PULSE 80; RESP 16; TEMP 36.9; O2SAT 97
[2022-11-16 16:36] LABS: Bedside Glucose 225 mg/dL (74-106)
[2022-11-16] MEDS: Tamsulosin HCl 0.4 MG Capsule PO (17:45)
[2022-11-16 17:57] VITALS: BP 136/60; PULSE 79
[2022-11-16] MEDS: Atorvastatin Calcium 40 MG Tablet PO (21:26)
[2022-11-16] MEDS: MELATONIN 3 MG TABLET PO (21:26)
[2022-11-16 21:56] LABS: Bedside Glucose 251 mg/dL (74-106)
[2022-11-17] MEDS: Menthol/Lanolin/Calamine/Znox 113 GM Tube 1 APPLIC TOPICAL ×2 (05:26→22:13)
[2022-11-17] MEDS: Acetaminophen 500 MG Tablet 1000 MG PO ×3 (05:27→22:11)
[2022-11-17] MEDS: Isosorbide Mononitrate 30 MG Tablet PO ×2 (05:27→17:38)
[2022-11-17] MEDS: Ciprofloxacin 250 MG Tablet PO (05:27)
[2022-11-17] MEDS: Senna/Docusate Sodium 1 Tablet 2 TABLET PO ×3 (05:27→22:11)
[2022-11-17] MEDS: amLODIPine 5 MG Tablet PO (05:28)
[2022-11-17] MEDS: BACITRACIN 15 GM Tube 1 APPLIC TOPICAL ×3 (05:28→22:13)
[2022-11-17] MEDS: APIXABAN 2.5 MG TABLET (WCH) PO ×2 (05:28→17:38)
[2022-11-17] MEDS: Nystatin Powder 15gm Bottle 1 APPLIC TOPICAL ×2 (05:28→22:14)
[2022-11-17 05:55] VITALS: BP 142/74; PULSE 87
[2022-11-17 06:17] LABS: Bedside Glucose 174 mg/dL (74-106)
[2022-11-17] MEDS: Glucerna Shake 120 ML LIQUID PO ×2 (08:17→14:58)
[2022-11-17] MEDS: Folic Acid 1 MG Tablet PO (08:18)
[2022-11-17] MEDS: Ferrous Sulfate 325 MG Tablet PO (08:18)
[2022-11-17] MEDS: Insulin Lispro 100 UNIT/ML INSULN.PEN SC ×2 (08:19→17:39)
[2022-11-17] MEDS: traMADol 50 MG Tablet PO ×2 (09:53→22:12)
[2022-11-17 11:33] LABS: Bedside Glucose 233 mg/dL (74-106)
[2022-11-17 14:35] VITALS: BP 118/55; PULSE 88; RESP 18; TEMP 36.7; O2SAT 96
[2022-11-17 16:29] LABS: Bedside Glucose 217 mg/dL (74-106)
[2022-11-17] MEDS: Tamsulosin HCl 0.4 MG Capsule PO (17:38)
[2022-11-17] MEDS: Polyethylene Glycol 3350 17 GM PACKET PO (17:38)
[2022-11-17 21:51] LABS: Bedside Glucose 181 mg/dL (74-106)
[2022-11-17] MEDS: MELATONIN 3 MG TABLET PO (22:12)
[2022-11-17] MEDS: Atorvastatin Calcium 40 MG Tablet PO (22:12)
[2022-11-18 06:40] LABS: Bedside Glucose 181 mg/dL (74-106)
[2022-11-18] MEDS: amLODIPine 5 MG Tablet PO (06:59)
[2022-11-18] MEDS: APIXABAN 2.5 MG TABLET (WCH) PO ×2 (06:59→17:42)
[2022-11-18] MEDS: Polyethylene Glycol 3350 17 GM PACKET PO (07:00)
[2022-11-18] MEDS: Isosorbide Mononitrate 30 MG Tablet PO ×2 (07:00→17:42)
[2022-11-18] MEDS: Acetaminophen 500 MG Tablet 1000 MG PO ×3 (07:00→22:03)
[2022-11-18] MEDS: Senna/Docusate Sodium 1 Tablet 2 TABLET PO ×2 (07:00→22:04)
[2022-11-18] MEDS: Menthol/Lanolin/Calamine/Znox 113 GM Tube 1 APPLIC TOPICAL ×2 (07:02→17:42)
[2022-11-18] MEDS: BACITRACIN 15 GM Tube 1 APPLIC TOPICAL ×2 (07:03→14:52)
[2022-11-18] MEDS: Nystatin Powder 15gm Bottle 1 APPLIC TOPICAL ×2 (07:06→17:42)
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
[2022-11-18] MEDS: Glucerna Shake 120 ML LIQUID PO ×3 (08:38→17:42)
[2022-11-18] MEDS: Ferrous Sulfate 325 MG Tablet PO (08:38)
[2022-11-18] MEDS: Insulin Lispro 100 UNIT/ML INSULN.PEN SC ×2 (08:38→17:41)
[2022-11-18] MEDS: Folic Acid 1 MG Tablet PO (08:38)
--- NOTE | 2022-11-18 09:51 | NURSING ---
Addendum entered by Rosa Beebe 11/18/22 13:25: Xrays completed,results and operative report faxed to Dr. Fernandez. Original Note: Call this morning from Dr. Fernandez. Report given on patient. Requesting to fax over operative reports and new orders placed for xrays.
[2022-11-18 11:35] LABS: Bedside Glucose 203 mg/dL (74-106)
[2022-11-18 11:48] VITALS: BP 144/68; PULSE 93; RESP 16; TEMP 37.3; O2SAT 95
--- NOTE | 2022-11-18 15:14 | WOUNDNOTE ---
wound photo: left foot
--- NOTE | 2022-11-18 15:14 | WOUNDNOTE ---
wound photo: left lower leg
--- NOTE | 2022-11-18 15:15 | WOUNDNOTE ---
wound photo: left lower leg
--- NOTE | 2022-11-18 15:16 | WOUNDNOTE ---
wound photo: left heel
[2022-11-18 16:51] LABS: Bedside Glucose 231 mg/dL (74-106)
[2022-11-18 17:37] VITALS: BP 133/65; PULSE 87
[2022-11-18] MEDS: Tamsulosin HCl 0.4 MG Capsule PO (17:42)
[2022-11-18] MEDS: MELATONIN 3 MG TABLET PO (22:03)
[2022-11-18] MEDS: Atorvastatin Calcium 40 MG Tablet PO (22:04)
[2022-11-18 22:44] LABS: Bedside Glucose 186 mg/dL (74-106)
[2022-11-19] MEDS: Acetaminophen 500 MG Tablet 1000 MG PO ×3 (06:19→21:38)
[2022-11-19] MEDS: Polyethylene Glycol 3350 17 GM PACKET PO (06:19)
[2022-11-19] MEDS: Isosorbide Mononitrate 30 MG Tablet PO ×2 (06:20→17:56)
[2022-11-19] MEDS: APIXABAN 2.5 MG TABLET (WCH) PO ×2 (06:20→17:56)
[2022-11-19] MEDS: Senna/Docusate Sodium 1 Tablet 2 TABLET PO ×3 (06:20→21:38)
[2022-11-19] MEDS: amLODIPine 5 MG Tablet PO (06:20)
[2022-11-19] MEDS: Nystatin Powder 15gm Bottle 1 APPLIC TOPICAL ×2 (06:20→17:57)
[2022-11-19] MEDS: Menthol/Lanolin/Calamine/Znox 113 GM Tube 1 APPLIC TOPICAL ×2 (06:20→17:57)
[2022-11-19 06:40] LABS: Bedside Glucose 174 mg/dL (74-106)
[2022-11-19] MEDS: Folic Acid 1 MG Tablet PO (08:33)
[2022-11-19] MEDS: Glucerna Shake 120 ML LIQUID PO ×3 (08:33→17:59)
[2022-11-19] MEDS: Insulin Lispro 100 UNIT/ML INSULN.PEN SC ×2 (08:34→17:56)
[2022-11-19] MEDS: Ferrous Sulfate 325 MG Tablet PO (08:34)
[2022-11-19] MEDS: traMADol 50 MG Tablet PO ×2 (08:39→21:37)
[2022-11-19 10:00] VITALS: PULSE 89; O2SAT 97
[2022-11-19 11:50] LABS: Bedside Glucose 176 mg/dL (74-106)
[2022-11-19 13:32] VITALS: BMI 31.8
[2022-11-19 14:20] VITALS: BP 133/65; PULSE 82; RESP 15; TEMP 36.4; O2SAT 97
[2022-11-19 17:43] LABS: Bedside Glucose 186 mg/dL (74-106)
[2022-11-19] MEDS: Tamsulosin HCl 0.4 MG Capsule PO (17:56)
[2022-11-19 18:04] VITALS: BP 156/68; PULSE 79
[2022-11-19] MEDS: Atorvastatin Calcium 40 MG Tablet PO (21:38)
[2022-11-19] MEDS: MELATONIN 3 MG TABLET PO (21:39)
--- NOTE | 2022-11-19 21:45 | NURSING ---
Blood glucose obtained by this nurse, glucometer unable to register patient barcode, override necessary. Blood glucose result 187
[2022-11-19 22:05] LABS: Bedside Glucose 187 mg/dL (74-106)
[2022-11-20] MEDS: Nystatin Powder 15gm Bottle 1 APPLIC TOPICAL ×2 (05:05→18:09)
[2022-11-20] MEDS: Menthol/Lanolin/Calamine/Znox 113 GM Tube 1 APPLIC TOPICAL ×2 (05:06→18:08)
[2022-11-20] MEDS: Lidocaine 5% Patch 2 PATCH TOPICAL (05:07)
[2022-11-20] MEDS: Polyethylene Glycol 3350 17 GM PACKET PO (05:08)
[2022-11-20] MEDS: traMADol 50 MG Tablet PO ×2 (05:14→12:12)
[2022-11-20] MEDS: Acetaminophen 500 MG Tablet 1000 MG PO ×3 (05:15→21:46)
[2022-11-20] MEDS: Senna/Docusate Sodium 1 Tablet 2 TABLET PO ×2 (05:15→21:47)
[2022-11-20] MEDS: amLODIPine 5 MG Tablet PO (05:15)
[2022-11-20] MEDS: APIXABAN 2.5 MG TABLET (WCH) PO ×2 (05:15→18:08)
[2022-11-20] MEDS: Isosorbide Mononitrate 30 MG Tablet PO ×2 (05:15→18:08)
[2022-11-20 05:31] VITALS: BP 141/74; PULSE 92; RESP 16
[2022-11-20 07:19] LABS: Bedside Glucose 156 mg/dL (74-106)
[2022-11-20] MEDS: Ferrous Sulfate 325 MG Tablet PO (08:12)
[2022-11-20] MEDS: Folic Acid 1 MG Tablet PO (08:12)
[2022-11-20] MEDS: Glucerna Shake 120 ML LIQUID PO ×3 (08:13→21:49)
[2022-11-20] MEDS: Insulin Lispro 100 UNIT/ML INSULN.PEN 8 UNIT SC ×2 (09:15→18:06)
[2022-11-20 11:43] LABS: Bedside Glucose 169 mg/dL (74-106)
[2022-11-20 14:32] VITALS: BP 131/62; PULSE 80; RESP 16; TEMP 36.4; O2SAT 99
[2022-11-20] MEDS: oxyCODONE 5 MG Tablet PO (14:33)
--- NOTE | 2022-11-20 15:13 | WOUNDNOTE ---
wound photo: left foot
--- NOTE | 2022-11-20 15:14 | WOUNDNOTE ---
wound photo: left foot
--- NOTE | 2022-11-20 15:15 | WOUNDNOTE ---
wound photo: left foot
--- NOTE | 2022-11-20 15:15 | WOUNDNOTE ---
wound photo: left heel
--- NOTE | 2022-11-20 15:16 | WOUNDNOTE ---
wound photo: left lower leg/foot
[2022-11-20 16:41] LABS: Bedside Glucose 161 mg/dL (74-106)
[2022-11-20] MEDS: Tamsulosin HCl 0.4 MG Capsule PO (18:08)
[2022-11-20 18:15] VITALS: BP 127/61; PULSE 89
[2022-11-20 20:25] VITALS: PULSE 92; RESP 18; O2SAT 97
[2022-11-20 21:23] LABS: Bedside Glucose 157 mg/dL (74-106)
[2022-11-20] MEDS: oxyCODONE 5 MG Tablet 10 MG PO (21:45)
[2022-11-20] MEDS: Atorvastatin Calcium 40 MG Tablet PO (21:46)
[2022-11-20] MEDS: MELATONIN 3 MG TABLET PO (21:47)
[2022-11-20] MEDS: Mirtazapine 15 MG Tablet 7.5 MG PO (21:49)
[2022-11-21 05:47] LABS: Absolute Lymphocyte Count 1.03 X10^3/uL (0.83-4.51); Absolute Neutrophil Count 1.2 X10^3/uL (2.0-7.7); Basophil# 0.03 X10^3/uL; Basophil% 1.1 % (0-1); Eosinophil# 0.11 X10^3/uL; Eosinophils% 3.9 % (0-5); Hematocrit 29.5 % (40-54); Lymphocyte # 1.03 X10^3/ul (0.83-4.51); Lymphocyte % 36.5 % (19-41); Mean Corp Hgb Conc 30.5 g/dL (32-36); Mean Corpuscular Hgb 28.8 pg (27.0-32.0); Mean Corpuscular Volume 94.2 fL (80-94); Mean Platelet Vol. 9.6 fl (6.2-12.0); Monocyte% 14.2 % (0-10); NRBC Flagged by Analyzer 0 % (0-5); Neutrophil # 1.24 X10^3/uL (2.7-7.7); Neutrophil % 43.9 % (47-70); Platelet Count 170 K/mm3 (150-450); RBC Distribution Width CV 14.8 % (11.6-14.6); RBC Distribution Width SD 51.2 fl (35.1-43.9); Red Blood Count 3.13 M/mm3 (4.6-6.2); White Blood Count 2.8 K/mm3 (4.4-11.0)
[2022-11-21] MEDS: Acetaminophen 500 MG Tablet 1000 MG PO ×3 (06:16→21:14)
[2022-11-21] MEDS: amLODIPine 5 MG Tablet PO (06:17)
[2022-11-21] MEDS: Glucerna Shake 120 ML LIQUID PO ×4 (06:17→21:12)
[2022-11-21] MEDS: Menthol/Lanolin/Calamine/Znox 113 GM Tube 1 APPLIC TOPICAL ×2 (06:17→18:06)
[2022-11-21] MEDS: Senna/Docusate Sodium 1 Tablet 2 TABLET PO ×3 (06:17→21:14)
[2022-11-21] MEDS: APIXABAN 2.5 MG TABLET (WCH) PO ×2 (06:17→18:05)
[2022-11-21] MEDS: Isosorbide Mononitrate 30 MG Tablet PO ×2 (06:17→18:06)
[2022-11-21] MEDS: Lidocaine 5% Patch 2 PATCH TOPICAL (06:18)
[2022-11-21] MEDS: Nystatin Powder 15gm Bottle 1 APPLIC TOPICAL ×2 (06:18→18:06)
[2022-11-21 06:23] LABS: Anion Gap 3 (5-15); BUN 18 mg/dL (7-18); BUN/Creat Ratio 15.1 RATIO (10-20); Calcium,Total 8.7 mg/dL (8.5-10.1); Chloride 111 mmol/L (98-107); Creatinine, Serum 1.19 mg/dL (0.70-1.30); EST Glomerular Filtration Rate 63 mL/min (>60); Est Glom Filt Rate - Afr Amer 76 mL/min (>60); Glucose 163 mg/dL (74-106); Potassium 4.4 mmol/L (3.5-5.1); Sodium Level 139 mmol/L (136-145)
[2022-11-21 06:45] LABS: Bedside Glucose 150 mg/dL (74-106)
[2022-11-21 06:58] VITALS: BP 164/70; PULSE 90
[2022-11-21] MEDS: Insulin Lispro 100 UNIT/ML INSULN.PEN 8 UNIT SC ×2 (07:28→18:05)
[2022-11-21] MEDS: Ferrous Sulfate 325 MG Tablet PO (07:28)
[2022-11-21] MEDS: Folic Acid 1 MG Tablet PO (07:28)
[2022-11-21] MEDS: oxyCODONE 5 MG Tablet 10 MG PO (07:33)
[2022-11-21 07:39] VITALS: PULSE 95; RESP 16; O2SAT 96
[2022-11-21 07:52] VITALS: BP 119/65; PULSE 95; RESP 16; TEMP 36.8; O2SAT 96
--- NOTE | 2022-11-21 08:15 | NURSING ---
TRANSPORT HERE TO TAKE PT VIA COT
--- NOTE | 2022-11-21 11:27 | NURSING ---
PT RETURNED FROM APPT, NO NEW ORDERS. DRESSING WAS CHANGED TO lt FOOT/HEEL. PIN SITES GLROY. PT DENIES PAIN. RESTING IN BED, CALL LIGHT IN REACH.
[2022-11-21 11:48] LABS: Bedside Glucose 174 mg/dL (74-106)
--- NOTE | 2022-11-21 15:00 | NURSING ---
DR LONI SCHMITT OFFICE NOTIFIED, SPOKE WITH DONOR PROCESSOR, SON REPORTING THAT HE WAS SUPPOSE TO GIVE ORDERS FOR THERAPY & PT STATING THAT HE WAS ALLOWED TO MOVE HIS ARM NOW, BUT WE HAVE NO ORDERS FROM MD STATING THIS. AWAITING RETURN CALL WITH ORDERS.
[2022-11-21 16:00] VITALS: BP 134/62; PULSE 90; RESP 16; TEMP 37.3; O2SAT 95
--- NOTE | 2022-11-21 17:33 | RAD_ITS ---
INDICATION: Right ankle pain, swelling. EXAMINATION/TECHNIQUE: X-RAY - RIGHT XR Ankle Min 3 Views 3 VIEWS COMPARISON: None FINDINGS: SOFT TISSUES: Medial more than lateral swelling. No gas or radiopaque foreign body. Thoracic calcifications. BONES/JOINTS: No acute fracture or subluxation. Ankle mortise and subtalar joint appear normal. No sclerotic or destructive changes observed. RAD/Ankle min 3 Views IMPRESSION: Medial more than lateral soft tissue swelling. No finding of fracture. Electronically Signed: Dc Acevedo MD at 19:26 EDT ,
[2022-11-21 17:40] LABS: Bedside Glucose 200 mg/dL (74-106)
[2022-11-21] MEDS: Tamsulosin HCl 0.4 MG Capsule PO (18:05)
[2022-11-21] MEDS: Polyethylene Glycol 3350 17 GM PACKET PO (18:06)
[2022-11-21] MEDS: traMADol 50 MG Tablet PO (21:12)
[2022-11-21] MEDS: MELATONIN 3 MG TABLET PO (21:13)
[2022-11-21] MEDS: Atorvastatin Calcium 40 MG Tablet PO (21:13)
[2022-11-21] MEDS: Mirtazapine 15 MG Tablet 7.5 MG PO (21:14)
[2022-11-21 22:10] LABS: Bedside Glucose 228 mg/dL (74-106)
[2022-11-22 06:34] LABS: Bedside Glucose 164 mg/dL (74-106)
[2022-11-22] MEDS: Menthol/Lanolin/Calamine/Znox 113 GM Tube 1 APPLIC TOPICAL ×2 (06:35→17:32)
[2022-11-22] MEDS: Nystatin Powder 15gm Bottle 1 APPLIC TOPICAL ×2 (06:36→17:32)
[2022-11-22] MEDS: amLODIPine 5 MG Tablet PO (06:37)
[2022-11-22] MEDS: Senna/Docusate Sodium 1 Tablet 2 TABLET PO ×3 (06:37→21:14)
[2022-11-22] MEDS: Polyethylene Glycol 3350 17 GM PACKET PO ×2 (06:37→17:30)
[2022-11-22] MEDS: Acetaminophen 500 MG Tablet 1000 MG PO ×3 (06:37→21:13)
[2022-11-22] MEDS: Lidocaine 5% Patch 2 PATCH TOPICAL (06:37)
[2022-11-22] MEDS: Isosorbide Mononitrate 30 MG Tablet PO ×2 (06:37→17:30)
[2022-11-22] MEDS: APIXABAN 2.5 MG TABLET (WCH) PO ×2 (06:37→17:30)
[2022-11-22] MEDS: Glucerna Shake 120 ML LIQUID PO ×4 (06:44→21:08)
[2022-11-22 07:28] VITALS: BP 140/70; RESP 16; O2SAT 96
[2022-11-22] MEDS: Insulin Lispro 100 UNIT/ML INSULN.PEN 8 UNIT SC ×2 (08:04→17:30)
[2022-11-22] MEDS: Ferrous Sulfate 325 MG Tablet PO (08:04)
[2022-11-22] MEDS: Folic Acid 1 MG Tablet PO (08:04)
[2022-11-22] MEDS: cycloBENZAPRine HCl 10 MG Tablet PO (09:11)
[2022-11-22 10:00] VITALS: PULSE 91; RESP 14; O2SAT 96
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
[2022-11-22 11:51] LABS: Bedside Glucose 187 mg/dL (74-106)
[2022-11-22] MEDS: oxyCODONE 5 MG Tablet 10 MG PO (15:09)
[2022-11-22 16:00] VITALS: BP 106/47; PULSE 78; RESP 19; TEMP 36.1; O2SAT 95
[2022-11-22 16:48] LABS: Bedside Glucose 238 mg/dL (74-106)
[2022-11-22] MEDS: Tamsulosin HCl 0.4 MG Capsule PO (17:30)
[2022-11-22] MEDS: traMADol 50 MG Tablet PO (21:11)
[2022-11-22] MEDS: MELATONIN 3 MG TABLET PO (21:13)
[2022-11-22] MEDS: Atorvastatin Calcium 40 MG Tablet PO (21:14)
[2022-11-22] MEDS: Mirtazapine 15 MG Tablet 7.5 MG PO (21:14)
[2022-11-22 21:46] LABS: Bedside Glucose 155 mg/dL (74-106)
[2022-11-23] MEDS: Nystatin Powder 15gm Bottle 1 APPLIC TOPICAL ×2 (04:45→18:10)
[2022-11-23] MEDS: Menthol/Lanolin/Calamine/Znox 113 GM Tube 1 APPLIC TOPICAL ×2 (04:45→18:11)
[2022-11-23] MEDS: Polyethylene Glycol 3350 17 GM PACKET PO ×2 (04:53→18:10)
[2022-11-23] MEDS: Isosorbide Mononitrate 30 MG Tablet PO ×2 (04:53→18:10)
[2022-11-23] MEDS: Lidocaine 5% Patch 2 PATCH TOPICAL (04:53)
[2022-11-23] MEDS: APIXABAN 2.5 MG TABLET (WCH) PO ×2 (04:53→18:10)
[2022-11-23] MEDS: Acetaminophen 500 MG Tablet 1000 MG PO ×3 (04:54→22:55)
[2022-11-23] MEDS: amLODIPine 5 MG Tablet PO (04:54)
[2022-11-23] MEDS: Senna/Docusate Sodium 1 Tablet 2 TABLET PO ×3 (04:54→22:55)
[2022-11-23 04:56] VITALS: BP 135/72; PULSE 88; RESP 16
[2022-11-23 06:33] LABS: Bedside Glucose 161 mg/dL (74-106)
[2022-11-23] MEDS: Insulin Lispro 100 UNIT/ML INSULN.PEN 10 UNIT SC ×3 (08:27→18:09)
[2022-11-23] MEDS: Ferrous Sulfate 325 MG Tablet PO (08:28)
[2022-11-23] MEDS: cycloBENZAPRine HCl 10 MG Tablet PO ×2 (08:28→18:24)
[2022-11-23] MEDS: Folic Acid 1 MG Tablet PO (08:37)
[2022-11-23] MEDS: oxyCODONE 5 MG Tablet 10 MG PO ×2 (09:31→15:03)
[2022-11-23 10:50] VITALS: BP 112/55; PULSE 99; RESP 16; TEMP 36.4; O2SAT 95
[2022-11-23 11:02] LABS: Bedside Glucose 192 mg/dL (74-106)
[2022-11-23] MEDS: Glucerna Shake 120 ML LIQUID PO ×2 (11:58→22:55)
[2022-11-23 16:46] LABS: Bedside Glucose 122 mg/dL (74-106)
[2022-11-23] MEDS: Tamsulosin HCl 0.4 MG Capsule PO (18:10)
[2022-11-23] MEDS: traMADol 50 MG Tablet PO (20:01)
[2022-11-23 21:26] LABS: Bedside Glucose 131 mg/dL (74-106)
[2022-11-23] MEDS: MELATONIN 3 MG TABLET PO (22:55)
[2022-11-23] MEDS: Mirtazapine 15 MG Tablet 7.5 MG PO (22:55)
[2022-11-23] MEDS: Atorvastatin Calcium 40 MG Tablet PO (22:55)
[2022-11-24] MEDS: Senna/Docusate Sodium 1 Tablet 2 TABLET PO ×2 (05:38→22:29)
[2022-11-24] MEDS: Isosorbide Mononitrate 30 MG Tablet PO ×2 (05:39→17:41)
[2022-11-24] MEDS: Acetaminophen 500 MG Tablet 1000 MG PO ×3 (05:39→22:29)
[2022-11-24] MEDS: amLODIPine 5 MG Tablet PO (05:39)
[2022-11-24] MEDS: APIXABAN 2.5 MG TABLET (WCH) PO ×2 (05:39→17:41)
[2022-11-24] MEDS: traMADol 50 MG Tablet PO (05:40)
[2022-11-24] MEDS: Polyethylene Glycol 3350 17 GM PACKET PO (05:40)
[2022-11-24] MEDS: Lidocaine 5% Patch 2 PATCH TOPICAL (05:42)
[2022-11-24] MEDS: Nystatin Powder 15gm Bottle 1 APPLIC TOPICAL ×2 (05:44→17:45)
[2022-11-24] MEDS: Menthol/Lanolin/Calamine/Znox 113 GM Tube 1 APPLIC TOPICAL ×2 (05:45→17:44)
[2022-11-24 06:28] LABS: Bedside Glucose 152 mg/dL (74-106)
[2022-11-24 08:16] VITALS: BP 130/62; PULSE 93; RESP 18; TEMP 37.1; O2SAT 94
[2022-11-24] MEDS: Insulin Lispro 100 UNIT/ML INSULN.PEN 10 UNIT SC ×2 (08:19→17:41)
[2022-11-24] MEDS: Ferrous Sulfate 325 MG Tablet PO (08:19)
[2022-11-24] MEDS: Folic Acid 1 MG Tablet PO (08:19)
[2022-11-24 11:04] LABS: Bedside Glucose 125 mg/dL (74-106)
[2022-11-24] MEDS: Glucerna Shake 120 ML LIQUID PO (12:05)
[2022-11-24 16:34] LABS: Bedside Glucose 206 mg/dL (74-106)
[2022-11-24] MEDS: Tamsulosin HCl 0.4 MG Capsule PO (17:41)
[2022-11-24 21:51] LABS: Bedside Glucose 148 mg/dL (74-106)
[2022-11-24] MEDS: SimETHICONE 80 MG Chewable Tablet PO (22:28)
[2022-11-24] MEDS: Mirtazapine 15 MG Tablet 7.5 MG PO (22:28)
[2022-11-24] MEDS: Atorvastatin Calcium 40 MG Tablet PO (22:29)
[2022-11-24] MEDS: MELATONIN 3 MG TABLET PO (22:29)
[2022-11-25 06:31] LABS: Bedside Glucose 152 mg/dL (74-106)
[2022-11-25] MEDS: Polyethylene Glycol 3350 17 GM PACKET PO (06:41)
[2022-11-25] MEDS: Menthol/Lanolin/Calamine/Znox 113 GM Tube 1 APPLIC TOPICAL ×2 (06:41→21:49)
[2022-11-25] MEDS: Nystatin Powder 15gm Bottle 1 APPLIC TOPICAL ×2 (06:42→21:49)
[2022-11-25] MEDS: Senna/Docusate Sodium 1 Tablet 2 TABLET PO ×3 (06:42→21:42)
[2022-11-25] MEDS: Isosorbide Mononitrate 30 MG Tablet PO ×2 (06:42→18:11)
[2022-11-25] MEDS: Acetaminophen 500 MG Tablet 1000 MG PO ×3 (06:42→21:42)
[2022-11-25] MEDS: amLODIPine 5 MG Tablet PO (06:42)
[2022-11-25] MEDS: APIXABAN 2.5 MG TABLET (WCH) PO ×2 (06:42→18:12)
[2022-11-25] MEDS: Lidocaine 5% Patch 2 PATCH TOPICAL (06:45)
[2022-11-25] MEDS: Ferrous Sulfate 325 MG Tablet PO (08:40)
[2022-11-25] MEDS: Folic Acid 1 MG Tablet PO (08:40)
[2022-11-25] MEDS: Insulin Lispro 100 UNIT/ML INSULN.PEN 10 UNIT SC ×3 (08:40→18:14)
[2022-11-25 11:41] LABS: Bedside Glucose 208 mg/dL (74-106)
[2022-11-25] MEDS: traMADol 50 MG Tablet PO ×2 (11:58→23:45)
--- NOTE | 2022-11-25 12:06 | CASEMGMT ---
Social Work SW updated pt and [facility] that insurance NRD 11/27. Pt stated he will tell his son. SW to continue to follow. Amberly Swain, COSTUME SPECIALIST ECONOMICS CONSULTANT
--- NOTE | 2022-11-25 14:07 | WOUNDNOTE ---
wound photo: left foot/ankle
--- NOTE | 2022-11-25 14:08 | WOUNDNOTE ---
wound photo: left great toe
--- NOTE | 2022-11-25 14:09 | WOUNDNOTE ---
wound photo: left foot
--- NOTE | 2022-11-25 14:09 | WOUNDNOTE ---
wound photo: left heel
[2022-11-25 15:00] VITALS: BP 115/65; PULSE 89; RESP 15; TEMP 36.3; O2SAT 97
[2022-11-25 17:02] LABS: Bedside Glucose 141 mg/dL (74-106)
[2022-11-25] MEDS: Glucerna Shake 120 ML LIQUID PO ×2 (18:11→21:43)
[2022-11-25] MEDS: Tamsulosin HCl 0.4 MG Capsule PO (18:12)
[2022-11-25 18:21] VITALS: BP 135/63; PULSE 79
[2022-11-25 21:20] LABS: Bedside Glucose 188 mg/dL (74-106)
[2022-11-25] MEDS: Atorvastatin Calcium 40 MG Tablet PO (21:42)
[2022-11-25] MEDS: Mirtazapine 15 MG Tablet 7.5 MG PO (21:42)
[2022-11-25] MEDS: MELATONIN 3 MG TABLET PO (21:43)
[2022-11-25 21:52] VITALS: O2SAT 95
[2022-11-26] MEDS: oxyCODONE 5 MG Tablet 10 MG PO ×3 (00:41→20:53)
[2022-11-26] MEDS: Senna/Docusate Sodium 1 Tablet 2 TABLET PO ×3 (05:56→20:49)
[2022-11-26] MEDS: Isosorbide Mononitrate 30 MG Tablet PO ×2 (05:57→17:55)
[2022-11-26] MEDS: APIXABAN 2.5 MG TABLET (WCH) PO ×2 (05:57→17:55)
[2022-11-26] MEDS: Acetaminophen 500 MG Tablet 1000 MG PO ×3 (05:57→20:53)
[2022-11-26] MEDS: amLODIPine 5 MG Tablet PO (05:57)
[2022-11-26] MEDS: Polyethylene Glycol 3350 17 GM PACKET PO ×2 (05:58→17:56)
[2022-11-26] MEDS: Glucerna Shake 120 ML LIQUID PO ×4 (05:59→20:50)
[2022-11-26 06:00] VITALS: BP 145/64; PULSE 88
[2022-11-26] MEDS: Lidocaine 5% Patch 2 PATCH TOPICAL (06:01)
[2022-11-26] MEDS: Nystatin Powder 15gm Bottle 1 APPLIC TOPICAL ×2 (06:05→17:56)
[2022-11-26] MEDS: Menthol/Lanolin/Calamine/Znox 113 GM Tube 1 APPLIC TOPICAL ×2 (06:05→17:55)
[2022-11-26 06:41] LABS: Bedside Glucose 164 mg/dL (74-106)
[2022-11-26] MEDS: Insulin Lispro 100 UNIT/ML INSULN.PEN 10 UNIT SC ×3 (08:25→17:52)
[2022-11-26] MEDS: Folic Acid 1 MG Tablet PO (08:26)
[2022-11-26] MEDS: Ferrous Sulfate 325 MG Tablet PO (08:26)
[2022-11-26 10:20] VITALS: PULSE 81; RESP 18; O2SAT 97
[2022-11-26 12:10] LABS: Bedside Glucose 165 mg/dL (74-106)
[2022-11-26 14:47] VITALS: BP 120/60; PULSE 60; RESP 16; TEMP 36.3; O2SAT 95
[2022-11-26 16:00] VITALS: BMI 31.2
[2022-11-26 17:40] LABS: Bedside Glucose 123 mg/dL (74-106)
[2022-11-26] MEDS: Tamsulosin HCl 0.4 MG Capsule PO (17:54)
[2022-11-26] MEDS: MELATONIN 3 MG TABLET PO (20:49)
[2022-11-26] MEDS: Atorvastatin Calcium 40 MG Tablet PO (20:50)
[2022-11-26] MEDS: Mirtazapine 15 MG Tablet 7.5 MG PO (20:50)
[2022-11-26 21:48] LABS: Bedside Glucose 175 mg/dL (74-106)
[2022-11-27] MEDS: Acetaminophen 500 MG Tablet 1000 MG PO ×3 (05:02→20:09)
[2022-11-27] MEDS: Polyethylene Glycol 3350 17 GM PACKET PO ×2 (05:02→18:33)
[2022-11-27] MEDS: Senna/Docusate Sodium 1 Tablet 2 TABLET PO ×3 (05:02→20:07)
[2022-11-27] MEDS: APIXABAN 2.5 MG TABLET (WCH) PO ×2 (05:03→18:33)
[2022-11-27] MEDS: Glucerna Shake 120 ML LIQUID PO ×4 (05:03→20:06)
[2022-11-27] MEDS: Isosorbide Mononitrate 30 MG Tablet PO ×2 (05:03→18:33)
[2022-11-27] MEDS: Lidocaine 5% Patch 2 PATCH TOPICAL (05:04)
[2022-11-27] MEDS: Menthol/Lanolin/Calamine/Znox 113 GM Tube 1 APPLIC TOPICAL ×2 (05:09→18:33)
[2022-11-27] MEDS: amLODIPine 5 MG Tablet PO (05:09)
[2022-11-27] MEDS: Nystatin Powder 15gm Bottle 1 APPLIC TOPICAL ×2 (05:10→18:33)
[2022-11-27 05:24] VITALS: BP 159/64; PULSE 87
[2022-11-27 06:28] LABS: Bedside Glucose 184 mg/dL (74-106)
[2022-11-27] MEDS: traMADol 50 MG Tablet PO (07:43)
[2022-11-27] MEDS: Ferrous Sulfate 325 MG Tablet PO (07:43)
[2022-11-27] MEDS: Folic Acid 1 MG Tablet PO (07:43)
[2022-11-27] MEDS: Insulin Lispro 100 UNIT/ML INSULN.PEN 10 UNIT SC ×3 (07:44→18:32)
[2022-11-27 11:54] LABS: Bedside Glucose 211 mg/dL (74-106)
[2022-11-27 15:39] VITALS: BP 147/56; PULSE 77; RESP 16; TEMP 36.8; O2SAT 97
[2022-11-27 17:14] LABS: Bedside Glucose 138 mg/dL (74-106)
[2022-11-27] MEDS: Tamsulosin HCl 0.4 MG Capsule PO (18:33)
[2022-11-27 18:42] VITALS: BP 131/59; PULSE 94
[2022-11-27] MEDS: Mirtazapine 15 MG Tablet 7.5 MG PO (20:06)
[2022-11-27] MEDS: MELATONIN 3 MG TABLET PO (20:07)
[2022-11-27] MEDS: Atorvastatin Calcium 40 MG Tablet PO (20:07)
[2022-11-27 20:13] VITALS: O2SAT 96
[2022-11-27 21:40] LABS: Bedside Glucose 215 mg/dL (74-106)
[2022-11-27] MEDS: oxyCODONE 5 MG Tablet 10 MG PO (22:04)
[2022-11-28 06:07] LABS: Absolute Lymphocyte Count 0.85 X10^3/uL (0.83-4.51); Absolute Neutrophil Count 1.7 X10^3/uL (2.0-7.7); Basophil# 0.03 X10^3/uL; Eosinophil# 0.12 X10^3/uL; Eosinophils% 3.9 % (0-5); Hematocrit 31.1 % (40-54); Hemoglobin 9.5 g/dL (13.0-16.5); Lymphocyte # 0.85 X10^3/ul (0.83-4.51); Lymphocyte % 27.4 % (19-41); Mean Corp Hgb Conc 30.5 g/dL (32-36); Mean Corpuscular Hgb 28.3 pg (27.0-32.0); Mean Corpuscular Volume 92.6 fL (80-94); Mean Platelet Vol. 9.7 fl (6.2-12.0); Monocyte# 0.36 X10^3/uL; Monocyte% 11.6 % (0-10); NRBC Flagged by Analyzer 0 % (0-5); Neutrophil # 1.73 X10^3/uL (2.7-7.7); Neutrophil % 55.8 % (47-70); Platelet Count 159 K/mm3 (150-450); RBC Distribution Width CV 14.6 % (11.6-14.6); RBC Distribution Width SD 49.5 fl (35.1-43.9); Red Blood Count 3.36 M/mm3 (4.6-6.2); White Blood Count 3.1 K/mm3 (4.4-11.0)
[2022-11-28] MEDS: Lidocaine 5% Patch 2 PATCH TOPICAL (06:23)
[2022-11-28] MEDS: Polyethylene Glycol 3350 17 GM PACKET PO (06:26)
[2022-11-28] MEDS: Acetaminophen 500 MG Tablet 1000 MG PO ×3 (06:26→21:24)
[2022-11-28] MEDS: Menthol/Lanolin/Calamine/Znox 113 GM Tube 1 APPLIC TOPICAL ×2 (06:27→18:45)
[2022-11-28] MEDS: Senna/Docusate Sodium 1 Tablet 2 TABLET PO ×3 (06:27→21:24)
[2022-11-28] MEDS: APIXABAN 2.5 MG TABLET (WCH) PO ×2 (06:27→18:41)
[2022-11-28] MEDS: Glucerna Shake 120 ML LIQUID PO ×4 (06:27→21:24)
[2022-11-28] MEDS: Isosorbide Mononitrate 30 MG Tablet PO ×2 (06:27→18:41)
[2022-11-28] MEDS: Nystatin Powder 15gm Bottle 1 APPLIC TOPICAL ×2 (06:28→18:46)
[2022-11-28] MEDS: amLODIPine 5 MG Tablet PO (06:30)
[2022-11-28 06:40] LABS: Anion Gap 4 (5-15); BUN 16 mg/dL (7-18); BUN/Creat Ratio 14.3 RATIO (10-20); Calcium,Total 9.1 mg/dL (8.5-10.1); Chloride 112 mmol/L (98-107); Creatinine, Serum 1.12 mg/dL (0.70-1.30); EST Glomerular Filtration Rate 67 mL/min (>60); Est Glom Filt Rate - Afr Amer 81 mL/min (>60); Estimated Creatinine Clearance 52.59 ml/min; Glucose 172 mg/dL (74-106); Potassium 4.2 mmol/L (3.5-5.1); Sodium Level 140 mmol/L (136-145)
[2022-11-28 06:45] LABS: Bedside Glucose 159 mg/dL (74-106)
[2022-11-28] MEDS: Folic Acid 1 MG Tablet PO (08:23)
[2022-11-28] MEDS: Insulin Lispro 100 UNIT/ML INSULN.PEN 10 UNIT SC ×3 (08:23→18:40)
[2022-11-28] MEDS: Ferrous Sulfate 325 MG Tablet PO (08:23)
[2022-11-28 11:44] LABS: Bedside Glucose 216 mg/dL (74-106)
[2022-11-28] MEDS: oxyCODONE 5 MG Tablet 10 MG PO (12:52)
--- NOTE | 2022-11-28 13:50 | CASEMGMT ---
Addendum entered by Amberly Swain 11/28/22 14:57: PASRR completed. Original Note: Social Work Insurance issued LCD 11/30, DC 12/01. SW sent secure email to son to update and explain appeal rights. Son requesting appeal information. SW provided [employer] appeal information. Son to notify this worker with case number once appeal is filed. Confirm the DC plan remains DC to [facility]. STEFANO spoke with pt and pt agreeable to appeal and DC plan, if lost. SW updated [facility] and IDT. PASRR to be completed and cot transport to be scheduled. Plan: DC 12/01, pending appeal, to [facility], intermediate, private pay, part B therapies Will continue to follow. MARILIN RothmanW
[2022-11-28 16:00] VITALS: BP 130/65; PULSE 83; RESP 16; TEMP 36.2; O2SAT 97
[2022-11-28 17:15] LABS: Bedside Glucose 123 mg/dL (74-106)
[2022-11-28] MEDS: Tamsulosin HCl 0.4 MG Capsule PO (18:41)
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
[2022-11-28] MEDS: Atorvastatin Calcium 40 MG Tablet PO (21:24)
[2022-11-28] MEDS: Mirtazapine 15 MG Tablet 7.5 MG PO (21:24)
[2022-11-28] MEDS: MELATONIN 3 MG TABLET PO (21:24)
[2022-11-28 21:41] LABS: Bedside Glucose 161 mg/dL (74-106)
--- NOTE | 2022-11-28 21:51 | NURSING ---
Pt refused Mag Citrate, per pt and EQUIPMENT PLANNER report he had a large BM this shift.
[2022-11-29] MEDS: Acetaminophen 500 MG Tablet 1000 MG PO ×3 (05:14→21:30)
[2022-11-29] MEDS: Senna/Docusate Sodium 1 Tablet 2 TABLET PO ×3 (05:14→21:28)
[2022-11-29] MEDS: amLODIPine 5 MG Tablet PO (05:14)
[2022-11-29] MEDS: Lidocaine 5% Patch 2 PATCH TOPICAL (05:15)
[2022-11-29] MEDS: Glucerna Shake 120 ML LIQUID PO ×4 (05:15→21:27)
[2022-11-29] MEDS: Isosorbide Mononitrate 30 MG Tablet PO ×2 (05:15→17:04)
[2022-11-29] MEDS: APIXABAN 2.5 MG TABLET (WCH) PO ×2 (05:15→17:04)
[2022-11-29] MEDS: Menthol/Lanolin/Calamine/Znox 113 GM Tube 1 APPLIC TOPICAL ×2 (05:18→17:09)
[2022-11-29] MEDS: Nystatin Powder 15gm Bottle 1 APPLIC TOPICAL ×2 (05:18→17:04)
[2022-11-29 05:22] VITALS: BP 130/66; PULSE 95
[2022-11-29 06:30] LABS: Bedside Glucose 173 mg/dL (74-106)
[2022-11-29] MEDS: Insulin Lispro 100 UNIT/ML INSULN.PEN 10 UNIT SC ×3 (08:12→17:03)
[2022-11-29] MEDS: Folic Acid 1 MG Tablet PO (08:13)
[2022-11-29] MEDS: Ferrous Sulfate 325 MG Tablet PO (08:13)
--- NOTE | 2022-11-29 10:08 | CASEMGMT ---
Social Work Son filed appealed. Received fax from [employer]. Medical records request sent to HIM to complete. Will await outcome. MARILIN RothmanW
[2022-11-29 11:19] LABS: Bedside Glucose 188 mg/dL (74-106)
[2022-11-29] MEDS: oxyCODONE 5 MG Tablet 10 MG PO ×2 (11:21→19:05)
[2022-11-29 13:20] LABS: Bacteria 0 SEEN /hpf (None Seen); Mucous, Urine 0 SEEN /hpf (<or=2+); Squamous Epithelial Cells - UA 0 SEEN /hpf (0-5)
[2022-11-29 13:23] LABS: Color, Urine Yellow (Yellow); Glucose, Dipstick Normal (Normal); Ketone-Dipstick Negative (Negative); Leukocyte Esterase-Dipstick 500 /ul (Negative); Nitrite-Dipstick Negative (Negative); Occult Blood-Urine 250 /ul (Negative); Protein-Dipstick 30 mg/dl (Negative); Specific Gravity, Urine 1.015 (1.002-1.030); Urine Bilirubin Dipstick Negative (Negative); Urine Clarity Clear (Clear); Urine Urobilinogen 1 mg/dl (Normal)
[2022-11-29 13:29] LABS: Red Blood Cells-Urine 0-5 SEEN /hpf (0-5); White Blood Cells 0-5 SEEN /hpf (0-5)
[2022-11-29 13:54] VITALS: BP 124/68; PULSE 78; RESP 16; TEMP 36.3; O2SAT 98
--- NOTE | 2022-11-29 14:16 | CASEMGMT ---
Social Work BIMS () and PHQ-9 (06/14) completed for MDS assessment. Amberly Swain MSW CUSHION STUFFER
[2022-11-29 16:40] LABS: Bedside Glucose 121 mg/dL (74-106)
[2022-11-29] MEDS: Polyethylene Glycol 3350 17 GM PACKET PO (17:04)
[2022-11-29] MEDS: Tamsulosin HCl 0.4 MG Capsule PO (17:04)
[2022-11-29] MEDS: Ciprofloxacin 250 MG Tablet PO (17:04)
[2022-11-29] MEDS: MELATONIN 3 MG TABLET PO (21:25)
[2022-11-29] MEDS: Mirtazapine 15 MG Tablet 7.5 MG PO (21:25)
[2022-11-29] MEDS: Atorvastatin Calcium 40 MG Tablet PO (21:25)
[2022-11-29 21:31] LABS: Bedside Glucose 151 mg/dL (74-106)
[2022-11-30 05:30] VITALS: BP 145/76; PULSE 76
[2022-11-30] MEDS: Senna/Docusate Sodium 1 Tablet 2 TABLET PO ×3 (05:32→20:26)
[2022-11-30] MEDS: Lidocaine 5% Patch 2 PATCH TOPICAL (05:32)
[2022-11-30] MEDS: Polyethylene Glycol 3350 17 GM PACKET PO ×2 (05:33→17:47)
[2022-11-30] MEDS: APIXABAN 2.5 MG TABLET (WCH) PO ×2 (05:33→17:47)
[2022-11-30] MEDS: Isosorbide Mononitrate 30 MG Tablet PO ×2 (05:33→17:47)
[2022-11-30] MEDS: Nystatin Powder 15gm Bottle 1 APPLIC TOPICAL ×2 (05:33→17:50)
[2022-11-30] MEDS: amLODIPine 5 MG Tablet PO (05:33)
[2022-11-30] MEDS: Acetaminophen 500 MG Tablet 1000 MG PO ×3 (05:33→20:26)
[2022-11-30] MEDS: Ciprofloxacin 250 MG Tablet PO ×2 (05:33→17:47)
[2022-11-30] MEDS: Menthol/Lanolin/Calamine/Znox 113 GM Tube 1 APPLIC TOPICAL ×2 (06:09→17:50)
[2022-11-30] MEDS: traMADol 50 MG Tablet PO (06:38)
[2022-11-30 06:39] LABS: Bedside Glucose 193 mg/dL (74-106)
[2022-11-30] MEDS: Folic Acid 1 MG Tablet PO (07:45)
[2022-11-30] MEDS: Ferrous Sulfate 325 MG Tablet PO (07:45)
[2022-11-30] MEDS: Insulin Lispro 100 UNIT/ML INSULN.PEN 10 UNIT SC ×3 (07:46→17:44)
[2022-11-30 09:40] VITALS: PULSE 102; RESP 18; O2SAT 96
[2022-11-30 11:57] LABS: Bedside Glucose 175 mg/dL (74-106)
[2022-11-30] MEDS: Glucerna Shake 120 ML LIQUID PO ×3 (11:57→20:30)
--- NOTE | 2022-11-30 12:41 | NURSING ---
IN TO SEE PT AND CHANGE DRESSINGS ON LEFT FOOT AND HEEL.
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
--- NOTE | 2022-11-30 13:58 | NURSING ---
PUT IN ORDER FOR CONSULT FOR PT WITH DUE TO POOR CIRCULATION MO . PLEASE CALL ON FRIDAY IF PT STILL HERE.
[2022-11-30 14:35] VITALS: BP 136/53; PULSE 101; RESP 16; TEMP 37.1; O2SAT 96
[2022-11-30 16:55] LABS: Bedside Glucose 151 mg/dL (74-106)
[2022-11-30] MEDS: Tamsulosin HCl 0.4 MG Capsule PO (17:46)
[2022-11-30] MEDS: oxyCODONE 5 MG Tablet 10 MG PO (20:17)
[2022-11-30] MEDS: MELATONIN 3 MG TABLET PO (20:26)
[2022-11-30] MEDS: Atorvastatin Calcium 40 MG Tablet PO (20:26)
[2022-11-30] MEDS: Mirtazapine 15 MG Tablet 7.5 MG PO (20:27)
--- NOTE | 2022-11-30 21:31 | CASEMGMT ---
Social Work Patient appeal was denied per Jared. SW notified son, nursing staff and [facility]. Son considering a second appeal due to new vascular consult. Son called with information regarding 2nd appeal and self-pay costs for the required 21 days. Son requests to discuss costs with father as they had planned on second appeal but the costs not expected for 21 days. SW checked with son and decision had not been made. SW asked son to let nursing staff know. TCU notified and transport has been scheduled with [facility] for 4pm transport to [place]. SW notified TCU that transportation would need cancelled if patient stays. SW sent transport form to TCU. Kimmie Shah METAL NUMERICAL TOOL PROGRAMMER, MINE ENGINEERING MANAGER
[2022-11-30 22:15] LABS: Bedside Glucose 150 mg/dL (74-106)
[2022-12-01] MEDS: Senna/Docusate Sodium 1 Tablet 2 TABLET PO ×2 (06:24→13:21)
[2022-12-01] MEDS: Glucerna Shake 120 ML LIQUID PO ×3 (06:24→17:46)
[2022-12-01] MEDS: Isosorbide Mononitrate 30 MG Tablet PO ×2 (06:24→17:49)
[2022-12-01] MEDS: Ciprofloxacin 250 MG Tablet PO (06:25)
[2022-12-01] MEDS: APIXABAN 2.5 MG TABLET (WCH) PO ×2 (06:25→17:50)
[2022-12-01] MEDS: Lidocaine 5% Patch 2 PATCH TOPICAL (06:25)
[2022-12-01] MEDS: Polyethylene Glycol 3350 17 GM PACKET PO (06:26)
[2022-12-01] MEDS: Nystatin Powder 15gm Bottle 1 APPLIC TOPICAL ×2 (06:26→17:48)
[2022-12-01] MEDS: Menthol/Lanolin/Calamine/Znox 113 GM Tube 1 APPLIC TOPICAL ×2 (06:26→17:46)
[2022-12-01] MEDS: Acetaminophen 500 MG Tablet 1000 MG PO ×2 (06:33→13:24)
[2022-12-01] MEDS: amLODIPine 5 MG Tablet PO (06:34)
[2022-12-01] MEDS: oxyCODONE 5 MG Tablet 10 MG PO (06:34)
[2022-12-01 06:53] LABS: Bedside Glucose 182 mg/dL (74-106)
[2022-12-01] MEDS: Insulin Lispro 100 UNIT/ML INSULN.PEN 10 UNIT SC ×3 (07:55→17:55)
[2022-12-01] MEDS: Ferrous Sulfate 325 MG Tablet PO (07:57)
[2022-12-01] MEDS: Folic Acid 1 MG Tablet PO (07:58)
[2022-12-01 10:00] VITALS: PULSE 90; RESP 18; O2SAT 97
[2022-12-01 11:42] LABS: Bedside Glucose 162 mg/dL (74-106)
[2022-12-01] MEDS: Nitrofurantoin Macrocrystals 100 MG Capsule PO ×2 (11:55→17:49)
[2022-12-01 13:36] VITALS: BP 121/58; PULSE 80; RESP 16; TEMP 36.4; O2SAT 96
--- NOTE | 2022-12-01 13:47 | NURSING ---
PT REFUSED TO GET OUT OF BED TODAY. PT FAMILY IS TAKING PT PERSONAL BELONGINGS WITH THEM AT D/C.
--- NOTE | 2022-12-01 15:55 | NURSING ---
attempted to call report x2 to [facility] but no answer. will report to transport team on arrival.
[2022-12-01 17:21] LABS: Bedside Glucose 128 mg/dL (74-106)
[2022-12-01] MEDS: Tamsulosin HCl 0.4 MG Capsule PO (17:46)
[2022-12-01] MEDS: traMADol 50 MG Tablet PO (17:55)
--- NOTE | 2022-12-01 17:59 | NURSING ---
report given to transport team at this time, just arrived w/cot
--- NOTE | 2022-12-01 18:38 | NURSING ---
report called to [facility] at [facility] at this time
== END 2022-12-01 18:00 | disposition intermediate care facility (04) | DRG 560 ==
PROVIDERS: Admitting Provider Family Medicine Geriatric Medicine; Visit Provider Family Medicine Geriatric Medicine
DX: S22.42XD Multiple fractures of ribs, left side, subsequent encounter for fracture with routine healing (principal); N39.0 Urinary tract infection, site not specified; L89.620 Pressure ulcer of left heel, unstageable; E11.42 Type 2 diabetes mellitus with diabetic polyneuropathy; E11.51 Type 2 diabetes mellitus with diabetic peripheral angiopathy without gangrene; E11.621 Type 2 diabetes mellitus with foot ulcer; D50.9 Iron deficiency anemia, unspecified; L97.522 Non-pressure chronic ulcer of other part of left foot with fat layer exposed; E11.9 Type 2 diabetes mellitus without complications; Z79.4 Long term (current) use of insulin; E53.8 Deficiency of other specified B group vitamins; E78.5 Hyperlipidemia, unspecified; I10 Essential (primary) hypertension; I25.10 Atherosclerotic heart disease of native coronary artery without angina pectoris; S06.0X9D Concussion with loss of consciousness of unspecified duration, subsequent encounter; N40.1 Benign prostatic hyperplasia with lower urinary tract symptoms; S42.001D Fracture of unspecified part of right clavicle, subsequent encounter for fracture with routine healing; V99.XXXD Unspecified transport accident, subsequent encounter; S82.202D Unspecified fracture of shaft of left tibia, subsequent encounter for closed fracture with routine healing; S82.402D Unspecified fracture of shaft of left fibula, subsequent encounter for closed fracture with routine healing; S91.312D Laceration without foreign body, left foot, subsequent encounter; Z79.899 Other long term (current) drug therapy; Z79.01 Long term (current) use of anticoagulants; Z79.82 Long term (current) use of aspirin; R33.8 Other retention of urine; R30.0 Dysuria
CPT/HCPCS: 36415; 73560; 73590; 73610; 80048; 81001; 82962; 85014; 85018; 85025; 86850; 86900; 86901; 86920; 86922; 87077; 87086; 87088; 87186; 92507; 92523; 97110; 97112; 97129; 97130; 97162; 97166; 97530; 97535; 97802

== ENCOUNTER 2022-11-08 09:10 | Outpatient (CLI) | payer MEDICARE, SELFPAY ==
[2022-11-08 09:36] VITALS: BP 133/63; PULSE 90; RESP 14; TEMP 36; O2SAT 96; BMI 33.4
[2022-11-08] MEDS: 0.9% NaCl Peripheral Flush Adult/Peds IV (09:44)
[2022-11-08 10:36] VITALS: BP 147/58; PULSE 89; RESP 18; TEMP 36.1
[2022-11-08 11:51] VITALS: BP 137/65; PULSE 85; RESP 16; TEMP 36.5; O2SAT 97
[2022-11-08 12:15] VITALS: BP 136/72; PULSE 82; RESP 14; TEMP 36.5; O2SAT 95
[2022-11-08] MEDS: Furosemide 20 MG/2 ML VIAL IV (12:31)
[2022-11-08 13:07] VITALS: BP 106/60; PULSE 67; RESP 16; TEMP 36.4; O2SAT 96
[2022-11-08 14:03] VITALS: BP 154/61; PULSE 90; RESP 18; TEMP 36.7
[2022-11-08 21:37] LABS: Bedside Glucose 156 mg/dL (74-106)
[2022-11-15 06:18] LABS: Bedside Glucose 173 mg/dL (74-106)
== END 2022-11-08 09:11 | disposition home or self-care (01) ==
LOC: MEDOUTP 09:11
PROVIDERS: Referring Provider Family Medicine Geriatric Medicine; Visit Provider Family Medicine Geriatric Medicine
DX: D64.89 Other specified anemias (principal); Z79.899 Other long term (current) drug therapy
CPT/HCPCS: 36430; 82962; 86850; 86900; 86901; 86920; 86922; J7040; P9016; A4216; J1940

== ENCOUNTER → 2022-11-22 | Outpatient (CLI) | payer MEDICARE, SELFPAY ==
--- NOTE | 2022-11-22 12:00 | ART_ITS ---
Reason For Study: LLE Ulcer/Woud Procedure Per order, doppler analysis only. Left Segmental Pressures The left posterior tibial artery waveforms are biphasic. The left dorsalis pedis waveforms are biphasic. Right Segmental Pressures The right posterior tibial artery waveforms are triphasic. The right dorsalis pedis waveforms are triphasic. VL/Lower Ext Art Exam w/o Exercis Interpretation Summary Doppler waveforms of the right ankle normal at rest. Doppler waveforms of the left ankle mildly diminished. Ordering Physician: Elias Herrera Referring Physician: Edith Schaefer Performed By: Laz Gilliland RVT
== END | disposition home or self-care (01) ==
PROVIDERS: Referring Provider Podiatrist; Visit Provider Podiatrist
DX: I73.9 Peripheral vascular disease, unspecified (principal)
CPT/HCPCS: 93923